=== PATIENT | female | born 1990 | race Caucasian/White ===

== ENCOUNTER 2024-05-31 18:08 | Emergency (ER) | payer SELFPAY ==
--- NOTE | ~2024-05-31 | US_ITS ---
EXAMINATION: US OB <=14 wk fetus w TV INDICATION: 5 weeks, lower abd pain, +preg test, r/o ectopic TECHNIQUE: Sonography of the pelvis was performed by transabdominal and transvaginal techniques. COMPARISON: None. RESULT: Uterus: 10.9 x 5.0 x 6.4 cm. Anteverted. Endometrial complex measures 11 mm. Homogenous myometrium. Intrauterine gestational sac: Not seen. Right ovary: 3.4 x 2.0 x 2.5 cm. Vascular flow is present. 1.7 cm simple cyst. Left ovary: 2.1 x 1.6 x 2.0 cm. Vascular flow is present. No adnexal mass. Pelvis free fluid: None. IMPRESSION: of unknown location. No sonographic evidence of ectopic . Recommend close clinical and laboratory follow-up and follow-up sonography as clinically indicated. Reviewed, dictated and finalized at location K. IMPRESSION: of unknown location. No sonographic evidence of ectopic . Re commend close clinical and laboratory follow-up and follow-up sonography as cli nically indicated.
[2024-05-31 18:14] VITALS: BP 120/81; PULSE 65; RESP 20; TEMP 36.3; O2SAT 100
--- NOTE | 2024-05-31 18:17 | ED.ABDPAIN ---
HPI - Abdominal Pain General Chief Complaint: Abdominal Pain <SIMONE Flynn Last Filed: 05/31/24 18:24> Stated Complaint: ABDOMINAL PAIN TODAY <SIMONE Flynn Last Filed: 05/31/24 18:24> Time Seen by Provider: 05/31/24 18:17 <SIMONE Flynn Last Filed: 05/31/24 18:24> Focused HPI: Patient is a 33 y/o female who presents to the ED with c/o lower abd pain. Patient reports she developed pain across her lower abdomen 4-5 hours ago. Pain has been constant since onset, worse with coughing or movement. Reports N/V, denies fevers, diarrhea, constipation, dysuria, hematuria. Patient reports she believes she is . Her LNMP was 04/23. She had a positive test last week. This would make patient . Does not currently see an OBGYN. GENERAL: Well-appearing, well-nourished, and in no acute distress. HEAD: Normocephalic, atraumatic. CHEST: Clear to auscultation. ?No respiratory distress. HEART: Regular rate and rhythm.? ABD: Diffuse tenderness throughout lower abdomen. No rebound. NEURO: ?Alert and oriented x3. Patient screened in triage and initial orders placed.? ?Additional care and disposition to be based upon?diagnostic testing and treatment. <SIMONE Flynn Last Filed: 05/31/24 18:24> Source: patient <SIMONE Flynn Last Filed: 05/31/24 18:24> Mode of arrival: ambulatory <SIMONE Flynn Last Filed: 05/31/24 18:24> Limitations: no limitations <SIMONE Flynn Last Filed: 05/31/24 18:24> History of Present Illness HPI narrative: The patient 33-year-old female who presents emergency department chief complaint of abdominal pain. Patient reports around 1:00 p.m. today she started having a burning like sensation in her lower abdomen. The patient reports she might be but is unsure patient reports she has had 3 other pregnancies that she has carried to term <Izaiah Maxwell MD - Last Filed: 05/31/24 22:23> Review of Systems Review of Systems: A 10 system review of systems was completed on the patient and is negative except for what is stated in the HPI. Nursing and ancillary documentation was reviewed. <Izaiah Maxwell MD - Last Filed: 05/31/24 22:23> Exam Narrative: GENERAL: Well-appearing, well-nourished, and in no acute distress. HEAD: Normocephalic, atraumatic. EYES: PERRLA and EOMI. ENT: Nares clear, no rhinorrhea or epistaxis. Mucous membranes moist. NECK: Supple. CHEST: Clear to auscultation. No respiratory distress. HEART: Regular rate and rhythm. No murmur heard. Normal peripheral pulses. ABDOMEN: Soft, nontender, nondistended, normal active bowel sounds. EXTREMITIES: Normal range of motion. No edema. SKIN: Warm, dry, no rash. NEURO: No focal deficits. Alert and oriented x3. PSYCH: Normal mood and affect. <Izaiah Maxwell MD - Last Filed: 05/31/24 22:23> Course Vital Signs Vital signs: Vital Signs Temperature 36.3 C L 05/31/24 18:14 Pulse Rate 65 05/31/24 18:14 Respiratory Rate 05/31/24 18:14 Blood Pressure 120/81 05/31/24 18:14 Pulse Oximetry 100 05/31/24 18:14 Oxygen Delivery Room Air 05/31/24 18:14 Temperature 36.3 C L 05/31/24 18:14 Pulse Rate 65 05/31/24 18:14 Respiratory Rate 05/31/24 18:14 Blood Pressure 120/81 05/31/24 18:14 Pulse Oximetry 100 05/31/24 18:14 Oxygen Delivery Room Air 05/31/24 18:14 <Yanique Mari PA-C - Last Filed: 05/31/24 18:24> Vital Signs Temperature 36.3 C L 05/31/24 18:14 Pulse Rate 65 05/31/24 18:14 Respiratory Rate 05/31/24 18:14 Blood Pressure 120/81 05/31/24 18:14 Pulse Oximetry 100 05/31/24 18:14 Oxygen Delivery Room Air 05/31/24 18:14 Temperature 36.3 C L 05/31/24 18:14 Pulse Rate 65 05/31/24 18:14 Respiratory Rate 20 05/31/24 18:14 Blood Pressure 120/81
[2024-05-31 18:35] LABS: Basophils Absolute Auto 0.1 K/mm3 (0.0-0.1); Basophils Percent Auto 0.9 % (0.2-1.2); Eosinophils Absolute Auto 0.4 K/mm3 (0-0.3); Eosinophils Percent Auto 3.3 % (0-4.4); Hemoglobin 14.2 g/dL (12.0-15.0); Immature Granulocyte Absolute 0.02 K/mm3 (0.00-0.031); Immature Granulocyte Percent A 0.2 % (0-0.5); Lymphocytes Percent Auto 30.8 % (18.3-44.2); Mean Corpuscular HGB Conc 34.6 g/dl (32-36); Mean Corpuscular Hemoglobin 32.1 pg (26-34); Mean Corpuscular Volume 92.6 fl (80-100); Mean Platelet Volume 10.3 fl (7.4-10.4); Monocytes Absolute Auto 0.8 K/mm3 (0.1-0.6); Monocytes Percent Auto 7.5 % (2.6-8.5); Neutrophils Absolute Auto 6.3 K/mm3 (1.3-6.7); Neutrophils Percent Auto 57.3 % (45.5-73.1); Platelet Count Result 251 k/mm3 (150-375); Red Blood Count 4.43 M/mm3 (4.2-5.4); Red Cell Distribution Width 12.7 % (11.5-14.5)
[2024-05-31 18:47] LABS: Alanine Aminotransferase 28 U/L (6-35); Albumin Level 4.2 g/dL (3.5-5.1); Alkaline Phosphatase 54 U/L (38-126); Anion Gap 10 mmol/L (4-12); Aspartate Amino Transferase 25 U/L (14-36); Bilirubin,Total 0.3 mg/dL (0.2-1.3); Blood Urea Nitrogen 10 mg/dL (7-17); Carbon Dioxide 23 mmol/L (22-30); Chloride 107 mmol/L (98-107); Estimated CRCL calculation 102 ml/min; Estimated Glomerular Filt Rate > 60; Glucose 90 mg/dL (65-110); Lipase 66 U/L (23-300); Potassium 3.6 mmol/L (3.4-5.0); Sodium 140 mmol/L (137-145)
[2024-05-31 19:04] LABS: Beta HCG Quantitative 275.13 mIU/ML
[2024-05-31 19:07] LABS: Add Urine Microscopic? YES; Appearance Urine Clear (Clear); Bacteria Urine 1+ /hpf; Bilirubin Urine Negative (Negative); Blood Urine 3+ (Negative); Color Urine Dark Yellow (Yellow); Glucose Urine UA Negative (Negative); Ketones Urine Trace mg/dL (Negative); Leukocyte Esterase Ur Negative LEU/UL (Negative); Nitrate Urine Negative (Negative); Non Pathogenic Casts 0-2; Protein Urine 2+ mg/dL (Negative); RBC Urine 21-50 /hpf (0-2); Specific Grav Ur 1.028 (1.001-1.035); Squamous Epithelial Cell Urine Occasional /hpf (Few); WBC Urine 0-5 /hpf (0-3); pH Urine 5.5 (5.0-9.0)
[2024-05-31 22:40] VITALS: BP 121/76; PULSE 88; RESP 15; TEMP 36.8; O2SAT 100
== END 2024-05-31 22:41 | disposition home or self-care (01) ==
PROVIDERS: Physician Assistant; Emergency Provider Emergency Medicine
DX: O26.899 Other specified pregnancy related conditions, unspecified trimester (principal); Z3A.00 Weeks of gestation of pregnancy not specified; R10.30 Lower abdominal pain, unspecified
CPT/HCPCS: 36415; 76801; 76817; 80053; 81001; 83690; 84702; 85025; 85461; 86850; 86900; 86901; 99284

== ENCOUNTER 2024-06-03 19:55 | Emergency (ER) | payer BC, SELFPAY ==
[2024-06-03 19:57] VITALS: BP 144/88; PULSE 67; RESP 13; TEMP 36.4; O2SAT 100
--- NOTE | 2024-06-03 20:26 | ED.FEMALEGU ---
HPI - Female Genitourinary General Chief complaint: Vaginal Bleeding Stated complaint: vaginal bleeding Time Seen by Provider: 06/03/24 20:19 History of Present Illness HPI Narrative: 33-year-old female who is presents to the emergency department with concerns for miscarriage. Patient's LMP was 04/23/2024. Please she is about 5 weeks . States 2 days ago she developed light spotting, bleeding increase yesterday and then more so today. States about an hour prior to arrival she passed a large clot and tissue which prompted her to come to the ED. states she has not had to wear a pad or tampon due to the because it only occurs when she is going to the bathroom. She states she had some abdominal cramping yesterday but that has since resolved. She denies prior history of miscarriages. Denies fever, vomiting, vaginal discharge, concern for STDs, dysuria or hematuria. She denies history of bleeding dyscrasias. No past medical history. Of note, patient was seen in our emergency department 3 days ago for abdominal pain and . Her hCG 3 days ago was 275.13. she had a pelvic ultrasound performed which showed of unknown location, no sonographic evidence of ectopic with recommendations for close clinical and laboratory follow-up and sonography as clinically indicated. Related Data Allergies Allergy/AdvReac Type Severity Reaction Status Date / Time No Known Allergies Allergy Verified 06/03/24 20:00 Review of Systems Review of Systems: All systems reviewed & are unremarkable except as noted in HPI and below Exam Narrative: GENERAL: Well-appearing, well-nourished, and in no acute distress. HEAD: Normocephalic, atraumatic. EYES: PERRLA and EOMI. ENT: Nares clear, no rhinorrhea or epistaxis. Mucous membranes moist. NECK: Supple. CHEST: Clear to auscultation. No respiratory distress. HEART: Regular rate and rhythm. No murmur heard. Normal peripheral pulses. ABDOMEN: Soft, nontender, nondistended, normal active bowel sounds. no rebound, guarding or rigidity. No CVA tenderness. : Chaperoned by Tracy Jimenez: Normal external genitalia with a mild amount of blood in the vaginal vault. Cervical os is slightly open. No clots or tissue visualized. No cervical motion tenderness, adnexal masses or tenderness. EXTREMITIES: Normal range of motion. No edema. SKIN: Warm, dry, no rash. NEURO: No focal deficits. Alert and oriented x3 Course Vital Signs Vital signs: Vital Signs Temperature 97.5 F L 06/03/24 19:57 Pulse Rate 67 06/03/24 19:57 Respiratory Rate 13 06/03/24 19:57 Blood Pressure 144/88 H 06/03/24 19:57 Pulse Oximetry 100 06/03/24 19:57 Oxygen Delivery Room Air 06/03/24 19:57 Temperature 97.5 F L 06/03/24 19:57 Pulse Rate 67 06/03/24 19:57 Respiratory Rate 13 06/03/24 19:57 Blood Pressure 144/88 H 06/03/24 19:57 Pulse Oximetry 100 06/03/24 19:57 Oxygen Delivery Room Air 06/03/24 19:57 MDM - Female Genitourinary MDM Narrative Medical decision making narrative: 33-year-old female who is approximately 5 weeks , LMP 04/15/2024 presents emergency department for vaginal bleeding in and concerns for miscarriage. Triage vital significant for blood pressure 144/88. Patient is afebrile nontoxic appearing. Exam is significant for the above. Abdomen is soft nontender. Mild amount of blood in the vaginal vault with cervical os slightly open concerning for incomplete . CBC with mild leukocytosis of 11.1 which is unchanged from 3 days ago. Hgb stable. Chemistries are unremarkable. Beta hCG today is 145.47, three days ago was 275.13. Rh factor is positive, RhoGAM not indicated. UA with 21-50 wbc's and large amount of blood as well as 2+ bacteria. Workup and exam discussed with the patient. Her presentation is consistent with an incomplete with down trending beta hCG. Given she has no abdominal pain or tenderness, wi
[2024-06-03 20:46] LABS: Basophils Absolute Auto 0.1 K/mm3 (0.0-0.1); Basophils Percent Auto 0.6 % (0.2-1.2); Eosinophils Absolute Auto 0.4 K/mm3 (0-0.3); Eosinophils Percent Auto 3.5 % (0-4.4); Hematocrit 39.3 % (37.0-47.0); Hemoglobin 13.5 g/dL (12.0-15.0); Immature Granulocyte Absolute 0.03 K/mm3 (0.00-0.031); Immature Granulocyte Percent A 0.3 % (0-0.5); Lymphocytes Absolute Auto 3.51 K/mm3 (0.9-3.2); Lymphocytes Percent Auto 31.7 % (18.3-44.2); Mean Corpuscular HGB Conc 34.4 g/dl (32-36); Mean Corpuscular Hemoglobin 31.7 pg (26-34); Mean Corpuscular Volume 92.3 fl (80-100); Mean Platelet Volume 10.4 fl (7.4-10.4); Monocytes Absolute Auto 0.9 K/mm3 (0.1-0.6); Monocytes Percent Auto 8.4 % (2.6-8.5); Neutrophils Absolute Auto 6.1 K/mm3 (1.3-6.7); Neutrophils Percent Auto 55.5 % (45.5-73.1); Platelet Count Result 238 k/mm3 (150-375); Red Blood Count 4.26 M/mm3 (4.2-5.4); Red Cell Distribution Width 12.8 % (11.5-14.5); White Blood Count 11.1 K/mm3 (4.5-10.0)
[2024-06-03 20:57] LABS: Alanine Aminotransferase 21 U/L (6-35); Albumin Level 4.1 g/dL (3.5-5.1); Alkaline Phosphatase 53 U/L (38-126); Anion Gap 10 mmol/L (4-12); Aspartate Amino Transferase 23 U/L (14-36); Bilirubin,Total 0.2 mg/dL (0.2-1.3); Blood Urea Nitrogen 13 mg/dL (7-17); Calcium 8.6 mg/dL (8.4-10.2); Carbon Dioxide 25 mmol/L (22-30); Chloride 104 mmol/L (98-107); Estimated CRCL calculation 102 ml/min; Estimated Glomerular Filt Rate > 60; Glucose 95 mg/dL (65-110); INR 0.9; Partial Thromboplastin Time 25.8 Seconds (22.3-36.8); Potassium 3.7 mmol/L (3.4-5.0); Prothrombin Time 12.6 Seconds (11.1-14.7); Sodium 139 mmol/L (137-145)
[2024-06-03 21:14] LABS: Beta HCG Quantitative 145.47 mIU/ML
[2024-06-03 21:45] LABS: Add Urine Microscopic? YES; Appearance Urine Cloudy (Clear); Bacteria Urine 2+ /hpf; Bilirubin Urine Negative (Negative); Blood Urine 3+ (Negative); Color Urine Yellow (Yellow); Glucose Urine UA Negative (Negative); Ketones Urine Trace mg/dL (Negative); Leukocyte Esterase Ur Trace LEU/UL (Negative); Nitrate Urine Negative (Negative); Non Pathogenic Casts 0-2; Protein Urine 2+ mg/dL (Negative); RBC Urine >100 /hpf (0-2); Specific Grav Ur 1.026 (1.001-1.035); Squamous Epithelial Cell Urine Few /hpf (Few); WBC Urine 21-50 /hpf (0-3)
[2024-06-03 22:20] VITALS: BP 140/80; PULSE 70; RESP 15; O2SAT 99
== END 2024-06-03 22:20 | disposition home or self-care (01) ==
PROVIDERS: Emergency Provider Physician Assistant
DX: O03.4 Incomplete spontaneous abortion without complication (principal)
CPT/HCPCS: 36415; 80053; 81001; 84702; 85025; 85461; 85610; 85730; 86850; 86900; 86901; 87086; 99284

== ENCOUNTER 2024-06-07 15:08 | Outpatient (CLI) | payer BC, SELFPAY ==
[2024-06-07 16:36] LABS: Beta HCG Quantitative 119.12 mIU/ML
== END 2024-06-07 15:09 | disposition home or self-care (01) ==
LOC: ANHLAB 15:10
PROVIDERS: PCP Emergency Medicine; Visit Provider Physician Assistant
DX: O03.4 Incomplete spontaneous abortion without complication (principal)
CPT/HCPCS: 36415; 84702

== ENCOUNTER 2025-01-10 17:57 | Emergency (ER) | payer SELFPAY ==
--- NOTE | ~2025-01-10 | US_ITS ---
EXAMINATION: US OB <= 14 weeks fetus DATE: 01/10/2025 20:07 CDT INDICATION: Abdominal cramping with a positive test COMPARISON: 07/28/2024 TECHNIQUE: Real-time transabdominal and transvaginal obstetric ultrasound. FINDINGS: Last menstrual period is given as 10/22/2024 5 para 3 Estimated date of delivery by last menstrual period is 07/29/2025. The uterus measures 17 x 6.3 x 11 cm. A gestational sac is identified within the uterus. A pole is identified, with a crown-rump length that measures 5.3 cm, corresponding to an approx imate gestational age of 12 weeks and 0 days. cardiac activity is identified at a rate of 138 bpm. The right ovary measures 3.3 x 1.5 x 2.2 cm. The left ovary measures 3.1 x 1.9 x 2.4 cm. IMPRESSION: Single intrauterine gestation with an approximate gestational age of 12 weeks and 0 days, with cardiac activity identified. Reviewed, dictated and finalized at location A. IMPRESSION: Single intrauterine gestation with an approximate gestational age of 12 weeks a nd 0 days, with cardiac activity identified.
[2025-01-10 18:29] VITALS: BP 135/85; PULSE 86; RESP 17; TEMP 36.5; O2SAT 100
--- NOTE | 2025-01-10 18:43 | ED.ABDPAIN ---
HPI - Abdominal Pain General Chief Complaint: Abdominal Pain Stated Complaint: abd pain 11 weeks Time Seen by Provider: 01/10/25 18:30 Focused HPI: Patient is 34-year-old female who presents to the ER with abdominal pain. She reports she has approximately a 11 weeks . Patient reports the abdominal pain started abruptly around 11:00 a.m./12:00 p.m. She reports this is her this , she has had 3 live births and 1 miscarriage. Patient is concerned because this is how her previous miscarriage presented. She endorses nausea along with generalized abdominal pain. Patient denies any recent fevers, urinary symptoms, vaginal bleeding, back pain. GENERAL: Well-appearing, well-nourished, and in no acute distress. HEAD: Normocephalic, atraumatic. CHEST: Clear to auscultation. ?No respiratory distress. HEART: Regular rate and rhythm.? NEURO: ?Alert and oriented x3. Patient screened in triage and initial orders placed.? ?Additional care and disposition to be based upon?diagnostic testing and treatment. Related Data Allergies Allergy/AdvReac Type Severity Reaction Status Date / Time No Known Allergies Allergy Verified 06/03/24 20:00 Course Vital Signs Vital signs: Vital Signs Temperature 36.5 C 01/10/25 18:29 Pulse Rate 86 01/10/25 18:29 Respiratory Rate 17 01/10/25 18:29 Blood Pressure 135/85 01/10/25 18:29 Pulse Oximetry 100 01/10/25 18:29 Temperature 36.5 C 01/10/25 18:29 Pulse Rate 86 01/10/25 18:29 Respiratory Rate 17 01/10/25 18:29 Blood Pressure 135/85 01/10/25 18:29 Pulse Oximetry 100 01/10/25 18:29 MDM - Abdominal Pain Imaging Data Radiologist's impression: ITS Impressions Ultrasound 01/10/25 20:07 IMPRESSION: Single intrauterine gestation with an approximate gestational age of 12 weeks and 0 days, with cardiac activity identified. Discharge Plan Discharge Clinical Impression: Abdominal pain affecting , Gastroenteritis Patient Disposition: Elopement After Seen by Prov Instructions: Antibiotic Form Patient Language: Solomon Islander Follow-up/Referrals: Baltazar Pope MD [Primary Care Provider] -
--- OUTSIDE RECORDS SUMMARY | 2025-01-10 19:08 | XMS_ITS | Referral Summary ---
Author Organization [facility] Virtual Care Address [address] [place] [phone] Phone Care Team Providers Care Storekeeper Helper Name Role Phone No, Physician Primary Care Provider [phone] Encounters Date Type Department Care Team Description 12/05/2024 5:59 PM CLINICAL TRANSFORMATION SPECIALIST - 12/05/2024 9:24 PM CLINICAL TRANSFORMATION SPECIALIST Emergency [facility] Emergency Department [address] [place] [id number] Jose D Espinoza MD Kanumuri, Raghu, MD Abdominal pain during in first trimester (Primary Dx) Discharge Disposition: Discharge to home or self care from Last 3 Months Allergies No known active allergies Social History Tobacco Use Types Packs/Day Years Used Date Smoking Tobacco: Never Assessed Personal Safety Answer Date Recorded Have you ever been in or are you currently in a harmful physical or emotional relationship or is someone making you feel afraid or unsafe? Denies 12/05/2024 Comments Yes Sex and Gender Information Value Date Recorded Sex Assigned at Not on file Legal Sex Female 4:46 PM CDT Gender Identity Not on file Sexual Orientation Not on file Last Filed Vital Signs Vital Sign Reading Time Taken Comments Blood Pressure 108/66 12/05/2024 9:22 PM CLINICAL TRANSFORMATION SPECIALIST Pulse 66 12/05/2024 9:22 PM CLINICAL TRANSFORMATION SPECIALIST Temperature 36.3 C (97.3 F) 12/05/2024 4:06 PM CLINICAL TRANSFORMATION SPECIALIST Respiratory Rate 16 12/05/2024 9:22 PM CLINICAL TRANSFORMATION SPECIALIST Oxygen Saturation 96% 12/05/2024 9:22 PM CLINICAL TRANSFORMATION SPECIALIST Inhaled Oxygen Concentration - - Weight 70.3 kg (155 lb) 12/05/2024 4:07 PM CLINICAL TRANSFORMATION SPECIALIST Height 154.9 cm (5' 1 ) 12/05/2024 4:07 PM CLINICAL TRANSFORMATION SPECIALIST Body Mass Index 29.29 12/05/2024 4:07 PM CLINICAL TRANSFORMATION SPECIALIST Plan of Treatment Not on file Procedures Procedure Name Priority Date/Time Associated Diagnosis Comments URINALYSIS, MICROSCOPIC ONLY STAT 12/05/2024 7:35 PM CLINICAL TRANSFORMATION SPECIALIST ANTIBODY SCREEN Timed 12/05/2024 7:35 PM CLINICAL TRANSFORMATION SPECIALIST ABO/RH Timed 12/05/2024 7:35 PM CLINICAL TRANSFORMATION SPECIALIST HCG, BLOOD, QUANTITATIVE STAT 12/05/2024 7:35 PM CLINICAL TRANSFORMATION SPECIALIST TYPE AND SCREEN Timed 12/05/2024 7:35 PM CLINICAL TRANSFORMATION SPECIALIST URINALYSIS AND REFLEX TO MICROSCOPIC AND CULTURE STAT 12/05/2024 7:35 PM CLINICAL TRANSFORMATION SPECIALIST B ABO / RH CONFIRMATION TESTING STAT 12/05/2024 4:44 PM CLINICAL TRANSFORMATION SPECIALIST EGFR STAT 12/05/2024 4:44 PM CLINICAL TRANSFORMATION SPECIALIST DIFFERENTIAL AUTO STAT 12/05/2024 4:4 4 PM CLINICAL TRANSFORMATION SPECIALIST LIPASE STAT 12/05/2024 4:44 PM CLINICAL TRANSFORMATION SPECIALIST COMPREHENSIVE METABOLIC PANEL STAT 12/05/2024 4:44 PM CLINICAL TRANSFORMATION SPECIALIST CBC WITH AUTO DIFFERENTIAL STAT 12/05/2024 4:44 PM CLINICAL TRANSFORMATION SPECIALIST from Last 3 Months Results * (ABNORMAL) Urinalysis reflex to microscopic and culture Urine (12/05/2024 7:35 PM CLINICAL TRANSFORMATION SPECIALIST) Color, ur Yellow Yellow Clarity, ur Turbid(A) Clear [facility] ([place]) Specific gravity, ur 1.020 1.003 - 1.030 [facility] ([place]) pH, urine 6.0 [facility] ([place]) Comment: Interpretive Data U rine pH is affected by diet, medications, systemic acid-base disturbances, and renal tubular function. pH may affect urinary stone formation. For example, urine pH below 6.0 may help reduce the tendency for calcium phosphate stones and pH greater than 6.0 may reduce the tendency for uric acid stone formation. Source: [facility] [employer] Current Interpretive Data was last revised on 2017 Protein, ur ql 1+(A) Negative [facility] ([place]) Glucose, ur ql Negative Negative [facility] ([place]) Ketones, ur Negative Negative [facility] ([place]) Bilirubin, ur Negative Negative [facility] ([place]) Blood, ur 3+(A) Negative [facility] ([place]) Urobilinogen, ur <2.0 <2.0 mg/dL [facility] ([place]) Nitrite, ur Negative Negative [facility] ([place]) Leukocyte esterase, ur Negative Negative [facility] ([place]) UA reflex comment Reflex to microscopic UA will be performed. [facility] ([place]) Urine 12/05/2024 7:35 PM CLINICAL TRANSFORMATION SPECIALIST 12/05/2024 7:47 PM CLINICAL TRANSFORMATION SPECIALIST us Jose D Espinoza MD LAB MICROBIOLOGY - GENERAL ORDERABLES Final Result [facility] ([place]) 1 [facility] [place] [address] * ABO/Rh (12/05/2024 7:35 PM CLINICAL TRANSFORMATION SPECIALIST) ABO/Rh A Positive Blood 12/05/2024 7:35 PM CLINICAL TRANSFORMATION SPECIALIST 12/05/2024 7:47 PM CLINICAL TRANSFORMATION SPECIALIST Narrative [facility] ([place]) - 12/05/2024 8:29 PM CLINICAL TRANSFORMATION SPECIALIST Has the patient had Daratumumab or Isatuximab in the past 6 months?->Unknown us Joe Martinez MD LAB BLOOD BANK TEST ORDERABLES Final Result [facility] ([place]) 1 [facility] [employer] [place] [employer] [place] [address] * (ABNORMAL) Urinalysis, microscopic only (12/05/2024 7:35 PM CLINICAL TRANSFORMATION SPECIALIST) WBC, ur 0-5 0 - 5 /HPF RBC, ur 0-2 0 - 2 /HPF [facility] ([place]) Epithelial cells, squamous, ur 11-20(A) 0 - 5 /HPF [facility] ([place]) Mucous, ur Present(A) [facility] ([place]) Culture Reflex Comment Reflex conditions for urine culture (WBC >10) not met. [facility] ([place]) Urine 12/05/2024 7:35 PM CLINICAL TRANSFORMATION SPECIALIST 12/05/2024 7:47 PM CLINICAL TRANSFORMATION SPECIALIST Jose D Espinoza MD LAB URINE ORDERABLES Final Result Performing Organization Address City/[facility]/ZIP Co de Phone Number [facility] ([place]) [address] [place] [address] [employer] [place] [address] * Antibody screen (12/05/2024 7:35 PM CLINICAL TRANSFORMATION SPECIALIST) Hemalatha, indirect, Gel Interpretation Negative ABSC Blood 12/05/2024 7:35 PM CLINICAL TRANSFORMATION SPECIALIST 12/05/2024 7:47 PM CLINICAL TRANSFORMATION SPECIALIST Narrative [facility] ([place]) - 12/05/2024 8:44 PM CLINICAL TRANSFORMATION SPECIALIST Has the patient had Daratumumab or Isatuximab in the past 6 months?->Unknown Joe Martinez MD LAB BLOOD BANK TEST ORDERABLES Final Result Performing Organization Address City/[facility]/ZIP Co de Phone Number [facility] ([place]) 1 [facility] [place] [address] * (ABNORMAL) hCG, blood, quantitative (12/05/2024 7:35 PM CLINICAL TRANSFORMATION SPECIALIST) hCG, quant 88,247.0( H) 0.0 - 5.0 IUnits/L Comment: Interpretive Data Male: < 5 IU/L Non- premenopausal Female: <5 IU/L The [place] hCG Beta Quant assay procedure was used. Results from different manufacturers or methods may not be comparable. Serial testing should be performed using the same method. Interpretive Data was last revised on 2023 Blood 12/05/2024 7:35 PM CLINICAL TRANSFORMATION SPECIALIST 12/05/2024 7:47 PM CLINICAL TRANSFORMATION SPECIALIST us Joe Martinez MD LAB BLOOD ORDERABLES Final Res ult [facility] ([place]) 1 [facility] [place] [address] * eGFR (12/05/2024 4:44 PM CLINICAL TRANSFORMATION SPECIALIST) eGFR >90 >=60 mL/min/1. 73 m2 Comment: Interpretive Data Reference Interval Normal >/= 90 mL/min/1.73m2 Mildly decreased* 60 - 89 mL/min/1.73m2 Mildly to moderately decreased 45 - 59 mL/min/1.73m2 Moderately to severely decreased 30 - 44 mL/min/1.73m2 Severely decreased 15 - 29 mL/min/1.73m2 Kidney Failure < 15 mL/min/1.73m2 *Relative to young adult level Estimated glomerular filtration rate is determined by the 2020 CKD-EPI equation recommended by the National Kidney Foundation (A Unifying Approach to GFR Estimation: Recommendations of the NKF-ASK Task Force on Reassessing the Inclusion of Race in Diagnosing Kidney Disease, JASN 2020). The CKD-EPI equation should not be used for patients with unstable renal function and has not been validated in children and those over 70. Current interpretive data was last reviewed 2021. Blood 12/05/2024 4:44 PM CLINICAL TRANSFORMATION SPECIALIST 12/05/2024 4:49 PM CLINICAL TRANSFORMATION SPECIALIST us Jose D Espinoza MD LAB BLOOD ORDERABLES Final Result Performing Organization Address City/[facility]/ZIP Co de Phone Number [facility] ([place]) [address] [place] [address] [place] [employer] [place] [address] * (ABNORMAL) Differential, auto (12/05/2024 4:44 PM CLINICAL TRANSFORMATION SPECIALIST) Neutrophil abs 7.4(H) 1.5 - 6.5 K/cumm Imm gran abs 0.0 0.0 - 0.1 K/cumm [facility] ([place]) Lymphocyte abs 3.4(H) 0.8 - 3.3 K/cumm [facility] ([place]) Monocyte abs 1.0(H) 0.2 - 0.8 K/cumm [facility] ([place]) Eosinophil abs 0.3 0.0 - 0.5 K/cumm [facility] ([place]) Basophil abs 0.1 0.0 - 0.1 K/cumm [facility] ([place]) Neutrophil pct 60.6 % [facility] ([place]) Comment: Interpretive Data Percent cell count reference ranges are not reported, since discordance with absolute values may lead to misinterpretation of CBC data. Current Interpretive Data was last revised on 2018. Imm gran pct 0.2 % [facility] ([place]) Comment: Interpretive Data Percent cell count reference ranges are not reported, since discordance with absolute values may lead to misinterpretation of CBC data. Current Interpretive Data was last revised on 2018. Lymphocyte pct 28.0 % [facility] ([place]) Comment: Interpretive Data Percent cell count reference ranges are not reported, since discordance with absolute values may lead to misinterpretation of CBC data. Current Interpretive Data was last revised on 2018. Monocyte pct 7.9 % [facility] ([place]) Comment: Interpretive Data Percent cell count reference ranges are not reported, since discordance with absolute values may lead to misinterpretation of CBC data. Current Interpretive Data was last revised on 2018. Eosinophil pct 2.7 % [facility] ([place]) Comment: Interpretive Data Percent cell count reference ranges are not reported, since discordance with absolute values may lead to misinterpretation of CBC data. Current Interpretive Data was last revised on 2018. Basophil pct 0.6 % [facility] ([place]) Comment: Interpretive Data Percent cell count reference ranges are not reported, since discordance with absolute values may lead to misinterpretation of CBC data. Current Interpretive Data was last revised on 2018. Blood 12/05/2024 4:44 PM CLINICAL TRANSFORMATION SPECIALIST 12/05/2024 4:49 PM CLINICAL TRANSFORMATION SPECIALIST Jose D Espinoza MD LAB BLOOD ORDERABLES Final Result [facility] ([place]) 1 [facility] [place] [address] * ABO / Rh Confirmation Testing (12/05/2024 4:44 PM CLINICAL TRANSFORMATION SPECIALIST) ABO/Rh Confirmation A Positive [facility] Blood 12/05/2024 4:44 PM CLINICAL TRANSFORMATION SPECIALIST 12/05/2024 8:38 PM CLINICAL TRANSFORMATION SPECIALIST Joe Martinez MD LAB BLOOD ORDERABLES Final Res ult Performing Organization Address City/[facility] Co de Phone Number [facility] ([place]) 1 [facility] [place] [address] [facility] * (ABNORMAL) CBC with auto differential (12/05/2024 4:44 PM CLINICAL TRANSFORMATION SPECIALIST) WBC 12.2(H) 3.8 - 9.9 K/cumm Hgb 13.6 11.9 - 15.5 g/dL [facility] ([place]) Hct 39.2 35.6 - 45.5 % [facility] ([place]) Plt 255 150 - 400 K/cumm [facility] ([place]) MPV 9.9 9.1 - 12.3 fL [facility] ([place]) RBC 4.35 3.90 - 5.20 M/cumm [facility] ([place]) MCV 90.1 81.3 - 96.4 fL [facility] ([place]) MCH 31.3 27.1 - 33.3 pg [facility] ([place]) MCHC 34.7 32.3 - 35.7 g/dL [facility] ([place]) RDW CV 12.4 11.1 - 14.9 % [facility] ([place]) RDW SD 40.6 35.7 - 48.1 fL [facility] ([place]) NRBC abs 0.00 0.00 - 0.01 K/cumm [facility] ([place]) Blood Venous blood specimen / Unknown 12/05/2024 4:44 PM CLINICAL TRANSFORMATION SPECIALIST 12/05/2024 4:49 PM CLINICAL TRANSFORMATION SPECIALIST Jose D Espinoza MD LAB BLOOD ORDERABLES Final Result [facility] ([place]) 1 [facility] [place] [address] * Lipase (12/05/2024 4:44 PM CLINICAL TRANSFORMATION SPECIALIST) Lipase 20 10 - 99 Units/L Blood Venous blood specimen / Unknown 12/05/2024 4:44 PM CLINICAL TRANSFORMATION SPECIALIST 12/05/2024 4:49 PM CLINICAL TRANSFORMATION SPECIALIST Jose D Espinoza MD LAB BLOOD ORDERABLES Final Result Performing Organization Address [facility] de Phone Number [facility] ([place]) [address] [place] [address] * Comprehensive metabolic panel (12/05/2024 4:44 PM CLINICAL TRANSFORMATION SPECIALIST) Pathologist [facility] Sodium 137 135 - 145 mmol/L Potassium, pl 4.1 3.3 - 4.9 mmol/L [facility] ([place]) Chloride 103 97 - 110 mmol/L [facility] ([place]) CO2 24 22 - 32 mmol/L [facility] ([place]) Anion gap 10 2 - 15 mmol/L [facility] ([place]) BUN 10 6 - 25 mg/dL [facility] ([place]) Creatinine 0.63 0.60 - 1.10 mg/dL [facility] ([place]) Glucose 92 70 - 199 mg/dL [facility] ([place]) Comment: Interpretive Data Fasting glucose >/= 126 mg/dl is diagnostic for diabetes. Fasting is defined as no caloric intake for at least 8 hours. Fasting glucose between 100 mg/dl to 125 mg/dl is diagnostic of prediabetes. In a patient with classic symptoms of hyperglycemia or hyperglycemic crisis, a random glucose >/= 200 mg/dl is diagnostic for diabetes. In the absence of unequivocal hyperglycemia, results should be confirmed by repeat testing. The classification and Diagnosis of Diabetes Diabetes Care 2021; 46: S19-S40. Current interpretive data was last revised 2022. Calcium 9.0 8.5 - 10.3 mg/dL [facility] ([place]) Bilirubin, total <0.2 0.1 - 1.2 mg/dL [facility] ([place]) Protein, pl 6.5 6.5 - 8.5 g/dL [facility] ([place]) Albumin 3.8 3.5 - 5.0 g/dL [facility] ([place]) Alk phos 56 40 - 130 Units/L [facility] ([place]) ALT 42 7 - 45 Units/L [facility] ([place]) AST 27 10 - 45 Units/L [facility] ([place]) Blood 12/05/2024 4:44 PM CLINICAL TRANSFORMATION SPECIALIST 12/05/2024 4:49 PM CLINICAL TRANSFORMATION SPECIALIST Jose D Espinoza MD LAB BLOOD ORDERABLES Final Result [facility] ([place]) 1 [facility] [place] [address] from Last 3 Months Insurance IDPA Care Teams Storekeeper Helper Relationship Specialty Start Date End Date No, Physician PCP - General 12/05/24
--- OUTSIDE RECORDS SUMMARY | 2025-01-10 19:08 | XMS_ITS | Clinical Summary ---
Author Organization [facility] Address [address] [place] [address] Phone Care Team Providers Care Gift Consultant Name Role Phone Provider, None Primary Care Provider Unavailabl e Allergies No known active allergies Medications albuterol 108 (90 Base) MCG/ACT Aerosol Solution take 2 Puffs by inhalation every 6 hours as needed for Wheezing. 8 g Active Social History Tobacco Use Types Packs/Day Years Used Date Smoking Tobacco: Every Day Cigarettes Smokeless Tobacco: Never Tobacco Cessation:Ready to Q uit: Not Asked; Counseling Given: Not Answered Comments No Sex and Gender Information Value Date Recorded Sex Assigned at Not on file Legal Sex Female 5:33 PM CDT Gender Identity Not on file Sexual Orientation Not on file Last Filed Vital Signs Vital Sign Reading Time Taken Comments Blood Pressure 117/73 04/13/2024 7:17 PM CDT Pulse 78 04/13/2024 7:17 PM CDT Temperature 36.1 C (96.9 F) 04/13/2024 7:17 PM CDT Respiratory Rate 16 04/13/2024 7:17 PM CDT Oxygen Saturation 96% 04/13/2024 7:17 PM CDT Inhaled Oxygen Concentration - - Weight 68.9 kg (152 lb) 04/13/2024 5:37 PM CDT Height 154.9 cm (5' 1 ) 04/13/2024 5:37 PM CDT Body Mass Index 28.72 04/13/2024 5:37 PM CDT Plan of Treatment Health Maintenance Due Date Last Done Comments Hepatitis C Virus (HCV) Screening 1991 TdaP Immunization 1991 Hepatitis B Immunization (1 of 3 - 19+ 3-dose series) 2010 Pneumococcal Immunization Co mbined (1 of 2 - PCV) 2010 Pap Smear 2012 Cervical Cancer Screening (CCS) 2021 HPV/Cotest 2021 Influenza Immunization (#1) 2024 SARS-COV-2 Immunization (1 - 2023- season) 2024 Respiratory Syncytial Virus (RSV) Immunization (Adult) (1 - 1-dose 75+ series) 2066 Meningococcal Immunization (ACWY) Aged Out No longer eligible based on patient's age to complete this topic Rotavirus Immunization Aged Out No lo nger eligible based on patient's age to complete this topic Insurance MEDICAID [place] Care Teams Gift Consultant Relationship Specialty Start Date End Date Provider, None [place] PCP - General 04/13/24
--- OUTSIDE RECORDS SUMMARY | 2025-01-10 19:08 | XMS_ITS | Clinical Summary ---
Author Organization [facility] Virtual Care Address [address] [place] [id number] Phone Care Team Providers Care Calculating Machine Mechanic Name Role Phone No, Physician Primary Care Provider [phone] Allergies No known active allergies Encounters Date Type Department Care Team Description 12/05/2024 5:59 PM STAFF ELECTRONIC WARFARE OFFICER - 12/05/2024 9:24 PM STAFF ELECTRONIC WARFARE OFFICER Emergency [facility] Emergency Department [address] [place] [id number] Jose D Espinoza MD Kanumuri, Raghu, MD Abdominal pain during in first trimester (Primary Dx) Discharge Disposition: Discharge to home or self care from Last 3 Months Social History Tobacco Use Types Packs/Day Years [...] on file Sexual Orientation Not on file Obstetrics History Para Term AB IAB SAB Ectopic Multiple Livin g Live Births 1 Date Outcome GA Total Labor Labor/2nd/3rd Weight Sex Type Anes PTL Lily A1 A5 Name Clin Current Last Filed Vital Signs Vital Sign Reading Time Taken Comments Blood Pressure 108/66 12/05/2024 9:22 PM STAFF ELECTRONIC WARFARE OFFICER Pulse 66 12/05/2024 9:22 PM STAFF ELECTRONIC WARFARE OFFICER Temperature 36.3 C (97.3 F) 12/05/2024 4:06 PM STAFF ELECTRONIC WARFARE OFFICER Respiratory Rate 16 12/05/2024 9:22 PM STAFF ELECTRONIC WARFARE OFFICER Oxygen Saturation 96% 12/05/2024 9:22 PM STAFF ELECTRONIC WARFARE OFFICER Inhaled Oxygen Concentration - - Weight 70.3 kg (155 lb) 12/05/2024 4:07 PM STAFF ELECTRONIC WARFARE OFFICER Height 154.9 cm (5' 1 ) 12/05/2024 4:07 PM STAFF ELECTRONIC WARFARE OFFICER Body Mass Index 29.29 12/05/2024 4:07 PM STAFF ELECTRONIC WARFARE OFFICER Plan of Treatment Health Maintenance Due Date Last Done Comments Depression Screening 1991 Hepatitis C Screening 1991 DTaP/Tdap/Td Vaccine (1 - Tdap) 2002 Varicella Vaccines (1 of 2 - 13+ 2-dose series) 2004 Hepatitis B Screening 2009 Regular Well Visit/Exam 18-64 2009 Pneumococcal vaccine <65 (1 of 2 - PCV) 2010 Cervical Cancer Screening 12/19/2022 12/19/2021 Influenza Vaccine (#1) 2024 HPV Vaccines Aged Out No longer eligi ble based on patient's age to complete this topic Procedures Procedure Name Priority Date/Time Associated Diagnosis Comments URINALYSIS, MICROSCOPIC ONLY STAT 12/05/2024 7:35 PM STAFF ELECTRONIC WARFARE OFFICER ANTIBODY SCREEN Timed 12/05/2024 7:35 PM STAFF ELECTRONIC WARFARE OFFICER ABO/RH Timed 12/05/2024 7:35 PM STAFF ELECTRONIC WARFARE OFFICER HCG, BLOOD, QUANTITATIVE STAT 12/05/2024 7:35 PM STAFF ELECTRONIC WARFARE OFFICER TYPE AND SCREEN Timed 12/05/2024 7:35 PM STAFF ELECTRONIC WARFARE OFFICER URINALYSIS AND REFLEX TO MICROSCOPIC AND CULTURE STAT 12/05/2024 7:35 PM STAFF ELECTRONIC WARFARE OFFICER B ABO / RH CONFIRMATION TESTING STAT 12/05/2024 4:44 PM STAFF ELECTRONIC WARFARE OFFICER EGFR STAT 12/05/2024 4:44 PM STAFF ELECTRONIC WARFARE OFFICER DIFFERENTIAL AUTO STAT 12/05/2024 4:4 4 PM STAFF ELECTRONIC WARFARE OFFICER LIPASE STAT 12/05/2024 4:44 PM STAFF ELECTRONIC WARFARE OFFICER COMPREHENSIVE METABOLIC PANEL STAT 12/05/2024 4:44 PM STAFF ELECTRONIC WARFARE OFFICER CBC WITH AUTO DIFFERENTIAL STAT 12/05/2024 4:44 PM STAFF ELECTRONIC WARFARE OFFICER from Last 3 Months Results * (ABNORMAL) Urinalysis reflex to microscopic and culture Urine (12/05/2024 7:35 PM STAFF ELECTRONIC WARFARE OFFICER) Color, ur Yellow Yellow Clarity, ur Turbid(A) [...] tendency for uric acid stone formation. Source: [facility] [place] Current Interpretive Data was last revised on [...] [facility] ([place]) Urine 12/05/2024 7:35 PM STAFF ELECTRONIC WARFARE OFFICER 12/05/2024 7:47 PM STAFF ELECTRONIC WARFARE OFFICER Jose D Espinoza MD LAB MICROBIOLOGY - GENERAL ORDERABLES Final Result [facility] ([place]) 1 [facility] [place] [address] * ABO/Rh (12/05/2024 7:35 PM STAFF ELECTRONIC WARFARE OFFICER) ABO/Rh A Positive Blood 12/05/2024 7:35 PM STAFF ELECTRONIC WARFARE OFFICER 12/05/2024 7:47 PM STAFF ELECTRONIC WARFARE OFFICER Narrative [facility] ([place]) - 12/05/2024 8:29 PM STAFF ELECTRONIC WARFARE OFFICER Has the patient had Daratumumab or Isatuximab in the past 6 months?->Unknown us Joe Martinez MD LAB BLOOD BANK TEST ORDERABLES Final Result [facility] ([place]) 1 [facility] [place] [address] * (ABNORMAL) Urinalysis, microscopic only (12/05/2024 7:35 PM STAFF ELECTRONIC WARFARE OFFICER) WBC, ur 0-5 0 - 5 /HPF RBC, ur 0-2 0 - 2 /HPF [facility] ([place]) Epithelial cells, squamous, ur 11-20(A) 0 - 5 /HPF [facility] ([place]) Mucous, ur Present(A) [facility] ([place]) Culture Reflex Comment Reflex conditions for urine culture (WBC >10) not met. [facility] ([place]) Urine 12/05/2024 7:35 PM STAFF ELECTRONIC WARFARE OFFICER 12/05/2024 7:47 PM STAFF ELECTRONIC WARFARE OFFICER us Jose D Espinoza MD LAB URINE ORDERABLES Final Result Performing Organization Address City/[facility]/ZIP Co de Phone Number [facility] ([place]) 1 [facility] [place] [employer] [place] [address] * Antibody screen (12/05/2024 7:35 PM STAFF ELECTRONIC WARFARE OFFICER) Hemalatha, indirect, Gel Interpretation Negative ABSC Blood 12/05/2024 7:35 PM STAFF ELECTRONIC WARFARE OFFICER 12/05/2024 7:47 PM STAFF ELECTRONIC WARFARE OFFICER Narrative [facility] ([place]) - 12/05/2024 8:44 PM STAFF ELECTRONIC WARFARE OFFICER Has the patient had Daratumumab or Isatuximab in the past 6 months?->Unknown Jeo Martinez MD LAB BLOOD BANK TEST ORDERABLES Final Result [facility] ([place]) 1 [facility] [place] [address] * (ABNORMAL) hCG, blood, quantitative (12/05/2024 7:35 PM STAFF ELECTRONIC WARFARE OFFICER) hCG, quant 88,247.0( H) 0.0 - 5.0 IUnits/L Comment: Interpretive Data Male: < 5 IU/L Non- premenopausal Female: <5 IU/L The [place] hCG Beta Quant assay procedure was used. Results from different manufacturers or methods may not be comparable. Serial testing should be performed using the same method. Interpretive Data was last revised on 2023 Blood 12/05/2024 7:35 PM STAFF ELECTRONIC WARFARE OFFICER 12/05/2024 7:47 PM STAFF ELECTRONIC WARFARE OFFICER Joe Martinez MD LAB BLOOD ORDERABLES Final Res ult [facility] ([place]) 1 [facility] [place] [address] * eGFR (12/05/2024 4:44 PM STAFF ELECTRONIC WARFARE OFFICER) eGFR >90 >=60 mL/min/1. 73 m2 Comment: [...] last reviewed 2021. Blood 12/05/2024 4:44 PM STAFF ELECTRONIC WARFARE OFFICER 12/05/2024 4:49 PM STAFF ELECTRONIC WARFARE OFFICER us Jose D Espinoza MD LAB BLOOD ORDERABLES Final Result [facility] ([place]) 1 [facility] [place] [address] * (ABNORMAL) Differential, auto (12/05/2024 4:44 PM STAFF ELECTRONIC WARFARE OFFICER) Neutrophil abs 7.4(H) 1.5 - 6.5 K/cumm Imm gran abs 0.0 0.0 - 0.1 K/cumm [facility] ([place]) Lymphocyte abs 3.4(H) 0.8 - 3.3 K/cumm [facility] ([place]) Monocyte abs 1.0(H) 0.2 - 0.8 K/cumm [facility] ([place]) Eosinophil abs 0.3 0.0 - 0.5 K/cumm [facility] ([place]) Basophil abs 0.1 0.0 - 0.1 K/cumm [facility] ([place]) Neutrophil pct 60.6 % [facility] ([place]) Comment: Interpretive Data Percent cell count reference [...] revised on 2018. Blood 12/05/2024 4:44 PM STAFF ELECTRONIC WARFARE OFFICER 12/05/2024 4:49 PM STAFF ELECTRONIC WARFARE OFFICER Jose D Espinoza MD LAB BLOOD ORDERABLES Final Result Performing Organization Address [facility]/ZIP Co de Phone Number [facility] ([place]) 1 [facility] [place] [address] * ABO / Rh Confirmation Testing (12/05/2024 4:44 PM STAFF ELECTRONIC WARFARE OFFICER) ABO/Rh Confirmation A Positive [facility] Blood 12/05/2024 4:44 PM STAFF ELECTRONIC WARFARE OFFICER 12/05/2024 8:38 PM STAFF ELECTRONIC WARFARE OFFICER Joe Martinez MD LAB BLOOD ORDERABLES Final Res ult Performing Organization Address [facility]/ZIP Co de Phone Number [facility] ([place]) 1 [facility] [place] [address] [facility]H * (ABNORMAL) CBC with auto differential (12/05/2024 4:44 PM STAFF ELECTRONIC WARFARE OFFICER) WBC 12.2(H) 3.8 - 9.9 K/cumm Hgb 13.6 11.9 - 15.5 g/dL [facility] ([place]) Hct 39.2 35.6 - 45.5 % [facility] ([place]) Plt 255 150 - 400 K/cumm [facility] ([place]) MPV 9.9 9.1 - 12.3 fL [facility] ([place]) RBC 4.35 3.90 - 5.20 M/cumm [facility] ([place]) MCV 90.1 81.3 - 96.4 fL [facility] ([place]) MCH 31.3 27.1 - 33.3 pg [facility] ([place]) MCHC 34.7 32.3 - 35.7 g/dL [facility] ([place]) RDW CV 12.4 11.1 - 14.9 % [facility]) RDW SD 40.6 35.7 - 48.[address] [facility] ([place]) NRBC abs 0.00 0.00 - 0.01 K/cumm [facility] ([place]) Blood Venous blood specimen / Unknown 12/05/2024 4:44 PM STAFF ELECTRONIC WARFARE OFFICER 12/05/2024 4:49 PM STAFF ELECTRONIC WARFARE OFFICER Jose D Espinoza MD LAB BLOOD ORDERABLES Final Result Performing Organization Address [facility] de Phone Number [facility] ([place]) 1 [facility] [employer] [address] * Lipase (12/05/2024 4:44 PM STAFF ELECTRONIC WARFARE OFFICER) Pathologist [facility] Lipase 20 10 - 99 Units/L Blood Venous blood specimen / Unknown 12/05/2024 4:44 PM STAFF ELECTRONIC WARFARE OFFICER 12/05/2024 4:49 PM STAFF ELECTRONIC WARFARE OFFICER Jose D Espinoza MD LAB BLOOD ORDERABLES Final Result Performing Organization Address City/[facility] de Phone Number [facility] ([place]) 1 [facility] [place] [place] [address] * Comprehensive metabolic panel (12/05/2024 4:44 PM STAFF ELECTRONIC WARFARE OFFICER) Sodium 137 135 - 145 mmol/L Potassium, pl 4.1 3.3 - 4.9 mmol/L [facility] ([place]) Chloride 103 97 - 110 mmol/L [facility] ([place]) CO2 24 22 - 32 mmol/L [facility] ([place]) Anion gap 10 2 - 15 mmol/L [facility] ([place]) BUN 10 6 - 25 mg/dL [facility] ([place]) Creatinine 0.63 0.60 - 1.10 mg/dL [facility] ([place]) Glucose 92 70 - 199 mg/dL [facility] ([place]) Comment: Interpretive Data Fasting glucose >/= [...] classification and Diagnosis of Diabetes Diabetes Care 202; 46: S19-S40. Current interpretive data was last [...] [facility] ([place]) Blood 12/05/2024 4:44 PM STAFF ELECTRONIC WARFARE OFFICER 12/05/2024 4:49 PM STAFF ELECTRONIC WARFARE OFFICER Jose D Espinoza MD LAB BLOOD ORDERABLES Final Result [facility] ([place]) 1 [facility] [place] [address] from Last 3 Months Insurance IDPA Care Teams Calculating Machine Mechanic Relationship Specialty Start Date End Date No, Physician PCP - General 12/05/24
--- NOTE | 2025-01-10 21:49 | PC.NURSE ---
Patient approached triage desk asking to speak with a doctor. Pt informed that she will not see another provider until she is placed in a room. Pt then stated she is leaving because That could be another couple of hours. Pt advised to be seen at nearest hospital for any changes in status.
--- OUTSIDE RECORDS SUMMARY | 2025-01-11 02:07 | XMS_ITS | Clinical Summary ---
Author Organization [facility] Virtual Care Address [address] [place] [phone] Phone Care Team Providers Care Support Technician Name Role Phone No, Physician Primary Care Provider [phone] Allergies No known active allergies Encounters Date Type Department Care Team Description 12/05/2024 5:59 PM HELMINTHOLOGIST - 12/05/2024 9:24 PM HELMINTHOLOGIST Emergency [facility] Emergency Department [address] [place] [id number] Jose D Espinoza MD Kanumuri, Raghu, MD [...] Comments Blood Pressure 108/66 12/05/2024 9:22 PM HELMINTHOLOGIST Pulse 66 12/05/2024 9:22 PM HELMINTHOLOGIST Temperature 36.3 C (97.3 F) 12/05/2024 4:06 PM HELMINTHOLOGIST Respiratory Rate 16 12/05/2024 9:22 PM HELMINTHOLOGIST Oxygen Saturation 96% 12/05/2024 9:22 PM HELMINTHOLOGIST Inhaled Oxygen Concentration - - Weight 70.3 kg (155 lb) 12/05/2024 4:07 PM HELMINTHOLOGIST Height 154.9 cm (5' 1 ) 12/05/2024 4:07 PM HELMINTHOLOGIST Body Mass Index 29.29 12/05/2024 4:07 PM HELMINTHOLOGIST Plan of Treatment Health Maintenance Due Date [...] URINALYSIS, MICROSCOPIC ONLY STAT 12/05/2024 7:35 PM HELMINTHOLOGIST ANTIBODY SCREEN Timed 12/05/2024 7:35 PM HELMINTHOLOGIST ABO/RH Timed 12/05/2024 7:35 PM HELMINTHOLOGIST HCG, BLOOD, QUANTITATIVE STAT 12/05/2024 7:35 PM HELMINTHOLOGIST TYPE AND SCREEN Timed 12/05/2024 7:35 PM HELMINTHOLOGIST URINALYSIS AND REFLEX TO MICROSCOPIC AND CULTURE STAT 12/05/2024 7:35 PM HELMINTHOLOGIST B ABO / RH CONFIRMATION TESTING STAT 12/05/2024 4:44 PM HELMINTHOLOGIST EGFR STAT 12/05/2024 4:44 PM HELMINTHOLOGIST DIFFERENTIAL AUTO STAT 12/05/2024 4:4 4 PM HELMINTHOLOGIST LIPASE STAT 12/05/2024 4:44 PM HELMINTHOLOGIST COMPREHENSIVE METABOLIC PANEL STAT 12/05/2024 4:44 PM HELMINTHOLOGIST CBC WITH AUTO DIFFERENTIAL STAT 12/05/2024 4:44 PM HELMINTHOLOGIST from Last 3 Months Results * (ABNORMAL) Urinalysis reflex to microscopic and culture Urine (12/05/2024 7:35 PM HELMINTHOLOGIST) Color, ur Yellow Yellow Clarity, ur Turbid(A) [...] for uric acid stone formation. Source: [facility] [employer] Current Interpretive Data was last revised on [...] [facility] ([place]) Urine 12/05/2024 7:35 PM HELMINTHOLOGIST 12/05/2024 7:47 PM HELMINTHOLOGIST Jose D Espinoza MD LAB MICROBIOLOGY - GENERAL ORDERABLES Final Result [facility] ([place]) 1 [facility] Department [place] [address] * ABO/Rh (12/05/2024 7:35 PM HELMINTHOLOGIST) ABO/Rh A Positive Blood 12/05/2024 7:35 PM HELMINTHOLOGIST 12/05/2024 7:47 PM HELMINTHOLOGIST Narrative [facility] ([place]) - 12/05/2024 8:29 PM HELMINTHOLOGIST Has the patient had Daratumumab or Isatuximab in the past 6 months?->Unknown us Joe Martinez MD LAB BLOOD BANK TEST ORDERABLES Final Result [facility] ([place]) 1 [facility] [place] [address] * (ABNORMAL) Urinalysis, microscopic only (12/05/2024 7:35 PM HELMINTHOLOGIST) WBC, ur 0-5 0 - 5 /HPF RBC, ur 0-2 0 - 2 /HPF [facility] ([place]) Epithelial cells, squamous, ur 11-20(A) 0 - 5 /HPF [facility] ([place]) Mucous, ur Present(A) [facility] A ([place]) Culture Reflex Comment Reflex conditions for urine culture (WBC >10) not met. [facility] ([place]) Urine 12/05/2024 7:35 PM HELMINTHOLOGIST 12/05/2024 7:47 PM HELMINTHOLOGIST us Jose D Espinoza MD LAB URINE ORDERABLES Final Result Performing Organization Address City/[facility]/ZIP Co de Phone Number [facility] ([place]) 1 [facility] [place] [address] * Antibody screen (12/05/2024 7:35 PM HELMINTHOLOGIST) Hemalatha, indirect, Gel Interpretation Negative ABSC Blood 12/05/2024 7:35 PM HELMINTHOLOGIST 12/05/2024 7:47 PM HELMINTHOLOGIST Narrative [facility] ([place]) - 12/05/2024 8:44 PM HELMINTHOLOGIST Has the patient had Daratumumab or Isatuximab in the past 6 months?->Unknown Joe Martinez MD LAB BLOOD BANK TEST ORDERABLES Final Result [facility] ([place]) 1 [facility] [place] [address] * (ABNORMAL) hCG, blood, quantitative (12/05/2024 7:35 PM HELMINTHOLOGIST) hCG, quant 88,247.0( H) 0.0 - 5.0 IUnits/L Comment: Interpretive Data Male: < 5 IU/L Non- premenopausal Female: <5 IU/L The [place] hCG Beta Quant assay procedure was used. Results from different manufacturers or methods may not be comparable. Serial testing should be performed using the same method. Interpretive Data was last revised on 2023 Blood 12/05/2024 7:35 PM HELMINTHOLOGIST 12/05/2024 7:47 PM HELMINTHOLOGIST Joe Martinez MD LAB BLOOD ORDERABLES Final Res ult [facility] ([place]) 1 [facility] [place] [address] * eGFR (12/05/2024 4:44 PM HELMINTHOLOGIST) eGFR >90 >=60 mL/min/1. 73 m2 Comment: [...] last reviewed 2021. Blood 12/05/2024 4:44 PM HELMINTHOLOGIST 12/05/2024 4:49 PM HELMINTHOLOGIST us Jose D Espinoza MD LAB BLOOD ORDERABLES Final Result [facility] ([place]) 1 [facility] Department [place] [address] * (ABNORMAL) Differential, auto (12/05/2024 4:44 PM HELMINTHOLOGIST) Neutrophil abs 7.4(H) 1.5 - 6.5 K/cumm Imm gran abs 0.0 0.0 - 0.1 K/cumm [facility] ([place]) Lymphocyte abs 3.4(H) 0.8 - 3.3 K/cumm [facility] ([place]) Monocyte abs 1.0(H) 0.2 - 0.8 K/cumm [facility] ([place]) Eosinophil abs 0.3 0.0 - 0.5 K/cumm [facility] ([place]) Basophil abs 0.1 0.0 - 0.1 K/cumm [facility] ([place]) Neutrophil pct 60.6 % [facility] ([place]) Comment: Interpretive Data Percent cell count reference [...] revised on 2018. Blood 12/05/2024 4:44 PM HELMINTHOLOGIST 12/05/2024 4:49 PM HELMINTHOLOGIST Jose D Espinoza MD LAB BLOOD ORDERABLES Final Result Performing Organization Address [facility]/ZIP Co de Phone Number [facility] ([place]) 1 [facility] [place] [address] * ABO / Rh Confirmation Testing (12/05/2024 4:44 PM HELMINTHOLOGIST) ABO/Rh Confirmation A Positive [facility] Blood 12/05/2024 4:44 PM HELMINTHOLOGIST 12/05/2024 8:38 PM HELMINTHOLOGIST Joe Martinez MD LAB BLOOD ORDERABLES Final Res ult Performing Organization Address [facility]/ZIP Co de Phone Number [facility] ([place]) 1 [facility] [place] [address] [facility] * (ABNORMAL) CBC with auto differential (12/05/2024 4:44 PM HELMINTHOLOGIST) WBC 12.2(H) 3.8 - 9.9 K/cumm Hgb 13.6 11.9 - 15.5 g/dL [facility] ([place]) Hct 39.2 35.6 - 45.5 % [facility] ([place]) Plt 255 150 - 400 K/cumm [facility] ([place]) MPV 9.9 9.1 - 12.3 fL [facility] ([place]) RBC 4.35 3.90 - 5.20 M/cumm [facility] ([place]) MCV 90.1 81.3 - 96.4 fL [facility] ([place]) MCH 31.3 27.1 - 33.3 pg [facility] ([place]) MCHC 34.7 32.3 - 35.7 g/dL [facility] ([place]) RDW CV 12.4 11.1 - 14.9 % [facility] ([place]) RDW SD 40.6 35.7 - 48.1 fL [facility] ([place]) NRBC abs 0.00 0.00 - 0.01 K/cumm [facility] ([place]) Blood Venous blood specimen / Unknown 12/05/2024 4:44 PM HELMINTHOLOGIST 12/05/2024 4:49 PM HELMINTHOLOGIST Jose D Espinoza MD LAB BLOOD ORDERABLES Final Result Performing Organization Address [facility] de Phone Number [facility] ([place]) 1 [facility] [employer] [place] [address] * Lipase (12/05/2024 4:44 PM HELMINTHOLOGIST) Pathologist [facility] Lipase 20 10 - 99 Units/L Blood Venous blood specimen / Unknown 12/05/2024 4:44 PM HELMINTHOLOGIST 12/05/2024 4:49 PM HELMINTHOLOGIST Jose D Espinoza MD LAB BLOOD ORDERABLES Final Result Performing Organization Address City/[facility] de Phone Number [facility] ([place]) 1 [facility] [place] [address] * Comprehensive metabolic panel (12/05/2024 4:44 PM HELMINTHOLOGIST) Sodium 137 135 - 145 mmol/L Potassium, pl 4.1 3.3 - 4.9 mmol/L [facility] ([place]) Chloride 103 97 - 110 mmol/L [facility] ([place]) CO2 24 22 - 32 mmol/L [facility] ([place]) Anion gap 10 2 - [...] [facility] ([place]) Blood 12/05/2024 4:44 PM HELMINTHOLOGIST 12/05/2024 4:49 PM HELMINTHOLOGIST Jose D Espinoza MD LAB BLOOD ORDERABLES Final Result [facility] ([place]) 1 [facility] Department [place] [address] from Last 3 Months Insurance IDPA Care Teams Support Technician Relationship Specialty Start Date End Date No, Physician PCP - General 12/05/24
--- OUTSIDE RECORDS SUMMARY | 2025-01-11 02:07 | XMS_ITS | Referral Summary ---
Author Organization [facility] Virtual Care Address [address] [place] [phone] Phone Care Team Providers Care Contract Agent Name Role Phone No, Physician Primary Care Provider [phone] Encounters Date Type Department Care Team Description 12/05/2024 5:59 PM IT APPLICATION ARCHITECT - 12/05/2024 9:24 PM IT APPLICATION ARCHITECT Emergency [facility] Emergency Department [address] [place] [id number] Jose D Espinoza MD Kanumuri, Raghu, MD [...] Comments Blood Pressure 108/66 12/05/2024 9:22 PM IT APPLICATION ARCHITECT Pulse 66 12/05/2024 9:22 PM IT APPLICATION ARCHITECT Temperature 36.3 C (97.3 F) 12/05/2024 4:06 PM IT APPLICATION ARCHITECT Respiratory Rate 16 12/05/2024 9:22 PM IT APPLICATION ARCHITECT Oxygen Saturation 96% 12/05/2024 9:22 PM IT APPLICATION ARCHITECT Inhaled Oxygen Concentration - - Weight 70.3 kg (155 lb) 12/05/2024 4:07 PM IT APPLICATION ARCHITECT Height 154.9 cm (5' 1 ) 12/05/2024 4:07 PM IT APPLICATION ARCHITECT Body Mass Index 29.29 12/05/2024 4:07 PM IT APPLICATION ARCHITECT Plan of Treatment Not on file Procedures Procedure Name Priority Date/Time Associated Diagnosis Comments URINALYSIS, MICROSCOPIC ONLY STAT 12/05/2024 7:35 PM IT APPLICATION ARCHITECT ANTIBODY SCREEN Timed 12/05/2024 7:35 PM IT APPLICATION ARCHITECT ABO/RH Timed 12/05/2024 7:35 PM IT APPLICATION ARCHITECT HCG, BLOOD, QUANTITATIVE STAT 12/05/2024 7:35 PM IT APPLICATION ARCHITECT TYPE AND SCREEN Timed 12/05/2024 7:35 PM IT APPLICATION ARCHITECT URINALYSIS AND REFLEX TO MICROSCOPIC AND CULTURE STAT 12/05/2024 7:35 PM IT APPLICATION ARCHITECT B ABO / RH CONFIRMATION TESTING STAT 12/05/2024 4:44 PM IT APPLICATION ARCHITECT EGFR STAT 12/05/2024 4:44 PM IT APPLICATION ARCHITECT DIFFERENTIAL AUTO STAT 12/05/2024 4:4 4 PM IT APPLICATION ARCHITECT LIPASE STAT 12/05/2024 4:44 PM IT APPLICATION ARCHITECT COMPREHENSIVE METABOLIC PANEL STAT 12/05/2024 4:44 PM IT APPLICATION ARCHITECT CBC WITH AUTO DIFFERENTIAL STAT 12/05/2024 4:44 PM IT APPLICATION ARCHITECT from Last 3 Months Results * (ABNORMAL) Urinalysis reflex to microscopic and culture Urine (12/05/2024 7:35 PM IT APPLICATION ARCHITECT) Color, ur Yellow Yellow Clarity, ur Turbid(A) [...] tendency for uric acid stone formation. Source: [facility] [employer] Current Interpretive Data was last revised on [...] [facility] ([place]) Urine 12/05/2024 7:35 PM IT APPLICATION ARCHITECT 12/05/2024 7:47 PM IT APPLICATION ARCHITECT us Jose D Espinoza MD LAB MICROBIOLOGY - GENERAL ORDERABLES Final Result [facility] ([place]) [address] [facility] [place] [address] * ABO/Rh (12/05/2024 7:35 PM IT APPLICATION ARCHITECT) ABO/Rh A Positive Blood 12/05/2024 7:35 PM IT APPLICATION ARCHITECT 12/05/2024 7:47 PM IT APPLICATION ARCHITECT Narrative [facility] ([place]) - 12/05/2024 8:29 PM IT APPLICATION ARCHITECT Has the patient had Daratumumab or Isatuximab in the past 6 months?->Unknown us Joe Martinez MD LAB BLOOD BANK TEST ORDERABLES Final Result [facility] ([place]) [address] [facility] [place] [address] * (ABNORMAL) Urinalysis, microscopic only (12/05/2024 7:35 PM IT APPLICATION ARCHITECT) WBC, ur 0-5 0 - 5 /HPF RBC, ur 0-2 0 - 2 /HPF [facility] ([place]) Epithelial cells, squamous, ur 11-20(A) 0 - 5 /HPF [facility] ([place]) Mucous, ur Present(A) [facility] Hodgson ([place]) Culture Reflex Comment Reflex conditions for urine culture (WBC >10) not met. [facility] ([place]) Urine 12/05/2024 7:35 PM IT APPLICATION ARCHITECT 12/05/2024 7:47 PM IT APPLICATION ARCHITECT Jose D Espinoza MD LAB URINE ORDERABLES Final Result Performing Organization Address City/[facility]/ZIP Co de Phone Number [facility] ([place]) [address] [place] [address] [place] [address] * Antibody screen (12/05/2024 7:35 PM IT APPLICATION ARCHITECT) Hemalatha, indirect, Gel Interpretation Negative ABSC Blood 12/05/2024 7:35 PM IT APPLICATION ARCHITECT 12/05/2024 7:47 PM IT APPLICATION ARCHITECT Narrative [facility] ([place]) - 12/05/2024 8:44 PM IT APPLICATION ARCHITECT Has the patient had Daratumumab or Isatuximab in the past 6 months?->Unknown Joe Martinez MD LAB BLOOD BANK TEST ORDERABLES Final Result Performing Organization Address City/[facility]/ZIP Co de Phone Number [facility] ([place]) [address] [facility] [place] [address] * (ABNORMAL) hCG, blood, quantitative (12/05/2024 7:35 PM IT APPLICATION ARCHITECT) hCG, quant 88,247.0( H) 0.0 - 5.0 IUnits/L Comment: Interpretive Data Male: < 5 IU/L Non- premenopausal Female: <5 IU/L The [place] hCG Beta Quant assay procedure was used. Results from different manufacturers or methods may not be comparable. Serial testing should be performed using the same method. Interpretive Data was last revised on 2023 Blood 12/05/2024 7:35 PM IT APPLICATION ARCHITECT 12/05/2024 7:47 PM IT APPLICATION ARCHITECT us Joe Martinez MD LAB BLOOD ORDERABLES Final Res ult [facility] ([place]) [address] [facility] [place] [address] * eGFR (12/05/2024 4:44 PM IT APPLICATION ARCHITECT) eGFR >90 >=60 mL/min/1. 73 m2 Comment: [...] last reviewed 2021. Blood 12/05/2024 4:44 PM IT APPLICATION ARCHITECT 12/05/2024 4:49 PM IT APPLICATION ARCHITECT us Jose D Espinoza MD LAB BLOOD ORDERABLES Final Result Performing Organization Address City/[facility]/ZIP Co de Phone Number [facility] ([place]) [address] [place] [address] [place] [address] * (ABNORMAL) Differential, auto (12/05/2024 4:44 PM IT APPLICATION ARCHITECT) Neutrophil abs 7.4(H) 1.5 - 6.5 K/cumm [...] Neutrophil pct 60.6 % [facility] ([place]) Comment: Interpretive [...] revised on 2018. Blood 12/05/2024 4:44 PM IT APPLICATION ARCHITECT 12/05/2024 4:49 PM IT APPLICATION ARCHITECT Jose D Espinoza MD LAB BLOOD ORDERABLES Final Result [facility] ([place]) 1 [facility] [place] [address] * ABO / Rh Confirmation Testing (12/05/2024 4:44 PM IT APPLICATION ARCHITECT) ABO/Rh Confirmation A Positive [facility] Blood 12/05/2024 4:44 PM IT APPLICATION ARCHITECT 12/05/2024 8:38 PM IT APPLICATION ARCHITECT Joe Martinez MD LAB BLOOD ORDERABLES Final Res ult Performing Organization Address City/[facility] Co de Phone Number [facility] ([place]) [address] [facility] [place] [address] [facility] * (ABNORMAL) CBC with auto differential (12/05/2024 4:44 PM IT APPLICATION ARCHITECT) WBC 12.2(H) 3.8 - 9.9 K/cumm Hgb 13.6 11.9 - 15.5 g/dL [facility] ([place]) Hct 39.2 35.6 - 45.5 % [facility] ([place]) Plt 255 150 - 400 K/cumm [facility] ([place]) MPV 9.9 9.1 - 12.3 fL [facility] ([place]) RBC 4.35 3.90 - 5.20 M/cumm [facility] ([place]) MCV 90.1 81.3 - 96.4 [...] blood specimen / Unknown 12/05/2024 4:44 PM IT APPLICATION ARCHITECT 12/05/2024 4:49 PM IT APPLICATION ARCHITECT Jose D Espinoza MD LAB BLOOD ORDERABLES Final Result [facility] ([place]) [address] [facility] [place] [address] * Lipase (12/05/2024 4:44 PM IT APPLICATION ARCHITECT) Lipase 20 10 - 99 Units/L Blood Venous blood specimen / Unknown 12/05/2024 4:44 PM IT APPLICATION ARCHITECT 12/05/2024 4:49 PM IT APPLICATION ARCHITECT Jose D Espinoza MD LAB BLOOD ORDERABLES Final Result Performing Organization Address [facility] de Phone Number [facility] ([place]) [address] [place] [address] * Comprehensive metabolic panel (12/05/2024 4:44 PM IT APPLICATION ARCHITECT) Pathologist [facility] Sodium 137 135 - 145 mmol/L Potassium, pl 4.1 3.3 - 4.9 mmol/L [facility] ([place]) Chloride 103 97 - 110 mmol/L [facility] ([place]) CO2 24 22 - 32 mmol/L [facility] ([place]) Anion gap 10 2 - 15 mmol/L [facility] ([place]) BUN 10 6 - 25 mg/dL [facility] ([place]) Creatinine 0.63 0.60 - 1.10 mg/dL [facility] ([place]) Glucose 92 70 - 199 mg/dL [facility] ([place]) Comment: Interpretive Data Fasting glucose >/= [...] <0.2 0.1 - 1.2 mg/dL [facility] ([place]) Protein, pl 6.5 6.5 - 8.5 g/dL [facility] ([place]) Albumin 3.8 3.5 - 5.0 g/dL [facility] ([place]) Alk phos 56 40 - 130 Units/L [facility] ([place]) ALT 42 7 - 45 Units/L [facility] ([place]) AST 27 10 - 45 Units/L [facility] ([place]) Blood 12/05/2024 4:44 PM IT APPLICATION ARCHITECT 12/05/2024 4:49 PM IT APPLICATION ARCHITECT Jose D Espinoza MD LAB BLOOD ORDERABLES Final Result [facility] ([place]) [address] [facility] [place] [address] from Last 3 Months Insurance IDPA Care Teams Contract Agent Relationship Specialty Start Date End Date No, Physician PCP - General 12/05/24
--- OUTSIDE RECORDS SUMMARY | 2025-01-11 02:07 | XMS_ITS | Clinical Summary ---
Author Organization [facility] Address [address] [place] [address] Phone Care Team Providers Care Hospitality Intern Name Role Phone Provider, None Primary Care [...] this topic Insurance MEDICAID [place] Care Teams Hospitality Intern Relationship Specialty Start Date End Date Provider, None [place] PCP - General 04/13/24
== END 2025-01-10 21:49 | disposition left against medical advice (07) ==
LOC: ANHED 01-11 02:06
PROVIDERS: Emergency Provider Registered Nurse; PCP Emergency Medicine
DX: O99.891 Other specified diseases and conditions complicating pregnancy (principal); K52.9 Noninfective gastroenteritis and colitis, unspecified; Z3A.11 11 weeks gestation of pregnancy
CPT/HCPCS: 76801; 99284

== ENCOUNTER 2025-04-13 20:17 | Observation (INO) | payer OTHER, MEDICAID, SELFPAY ==
--- NOTE | ~2025-04-13 | US_ITS ---
EXAM: RENAL ULTRASOUND HISTORY: Back pain and blood in urine COMPARISON: None FINDINGS: RIGHT KIDNEY: 10.3 x 4.9 x 5.3 cm. The parenchyma of the right kidney is unremarkable in echogenicity. No hydronephrosis or renal calculi. LEFT KIDNEY: 12.2 x 7.0 x 5.0 cm No hydronephrosis or renal calculi. The parenchyma of the left kidney is unremarkable in echogenicity. BLADDER: Decompressed, limiting its evaluation. IMPRESSION: No hydronephrosis or renal calculi. Reviewed, dictated and finalized at location A.
--- OUTSIDE RECORDS SUMMARY | 2025-04-13 20:41 | XMS_ITS | Patient Health Record ---
Author Organization [facility] Address [address] [place] [address] Support Name Relationship Address Phone Satya estelaallegra Emergency Contact Unknown [phone] Saige Sanchez Guarantor Unknown Unavailabl e Allergies Allergen (clinical drug ingredient) Drug/Non Drug Allergy documented on EMR Reaction Allergy Type Onset Date Status enviromental (uncoded) hives Allergy Active Reason For Referral No Information Social History Tobacco Use: Social History Observation Description Date Details (start date - stop date) Current Smoker NA - NA Tobacco Use/Smoking Question Answer Notes Are you a current smoker How many cigarettes a day do you smoke? 6-10 How soon after you wake up d o you smoke your first cigarette? 31-60 minutes Are you interested in quitting? Thinking about q uitting Alcohol Screen (Audit-C) Question Answer Notes Did you have a drink contain ing alcohol in the past year? Yes How often did you have a dri nk containing alcohol in the past year? 2 to 4 times a month (2 points) How many drinks did you have on a typical day when you were drinking in the past year? 1 or 2 drinks (0 point) How often did you have 6 or more drinks on one occasion in the past year? Never (0 point) Points 2 Interpretation Negative Plan Of Treatment No Information Medical (General) History Medical History History ICD Code asthma as child...no sx as adult Surgical History Surgery Date(Month/Year) T & A 10/2009 c section 10/2008 Hospitalization History Reason Date(Month/Year) surgery 10/2008 surgery 10/2009
--- OUTSIDE RECORDS SUMMARY | 2025-04-13 20:41 | XMS_ITS | Data Portability ---
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 Violence N Asthma N Trauma/Violence N Depression/ depression N Heart Disease N Pre-Eclampsia N Hypertension N Osteoporosis N Thrombophilias N Gynecological History Statement/Question Response Date of LMP 10/22/2024 On BCP's at Conception? N N Was last menstrual period normal Y STIs/STDs N HPV Vaccine Y Duration of Flow (days) 3 Current Control Method Age at First Child 18 Date of control 01/24/2025 Are cycles usually normal Y Frequency of Cycle (Q days) 29 Sexually Active? Y Menses Monthly Y Age of first menstrual cycle 10 Date of Last Pap Smear 02/26/2022 Sexual Problems? N Desired Control Method Condoms LMP Definite N Obstetrics History GPAL:G 4 P 0 0 1 3 Type Value Spontaneous 1 Living 3 Total 4 Past Encounters Encounter ID Performer Location Encounter Start Date Encounter Closed Date Diagnosis/Indication Diagnosis SNOMED-CT Code Diagnosis ICD10 Code Diagnosis Note [id number] BENNY BARRETO MD [place] [address],[place] [address] 01/26/2025 16:03:59 01/26/2025 16:54:41 screening [id number] Z36.82 Z3A.13 [id number] BENNY BARRETO MD [facility] [address],[place] [address] 01/26/2025 16:05:12 01/26/2025 17:33:42 screening 311819250 Z36.89 Genetic in vestigation procedure 41810971 Z31.430 test positive 318948784 Z32.01 1. Exam today within normal limits.2. Ultrasound today confirms GA and viability. EDC . KADE/Tosha a testing done: will f/u as indicated. 4. ACOG guidelines and plan of care for reviewed with patient. All questions answered.5 . Return to office at 16 weeks for new OB visit6. Genetic screening: desires, will draw today. Tobacco user 039174911 Z 72.0 - discussed recommenda tion for cessation [id number] Don Sanders MD [place] [address],[place] [address] 02/19/2025 10:41:01 02/19/2025 11:19:07 Urinary symptoms 431802555 R39.9 care status 24 5279471 Z34.92 Acute urin harpreet tract infection 298073286 N39.0 [id number] MD Kasey Conde [address],[place] [address] 03/17/2025 16:09:22 03/17/2025 17:18:22 screening for malformation 540799131 Z36.3 Z3A.20 [id number] Don Sanders MD [place] [address] [address] 03/17/2025 16:10:13 03/18/2025 05:51:51 Vaginitis 92833287 N76.0 Abnormal u terine bleeding 2539290883 9100 N93.9 care status 24 9406579 Z34.82 Health Concerns Section Related Observation LastModified by Organization Detai ls LastModified Time None Recorded Concern Status LastModified by Organization Details LastModified Time None Recorded Advance Directives Directive N: Payers Insurance Date Sequence Insurance Name Policy Number Policy Wallis Covered Member ID Wallis Member ID Guarantor Name 04/12/2025 1 [facility] [id number] Saige Sanchez [id number] Saige Sanchez 04/12/2025 2 [place] [facility] Saige Sanchez [id number] Saige Sanchez Notes Date Note Type Note Provider Name and Address Organization Details Recorded Time 01/26/2025 text/html Presents to the office today to confirm . Patient denies any problems up to this point with her . Patient denies cramping or vaginal bleeding. Mild nausea. Hx of c section x3, otherwise uncomplicated . Lives with her two kids. 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 Denies EtOH/illicits. 0.5ppd smoker. [facility] 01/26/2025 17:32:51 OBGyn Episode Ob Episode Information Episode Created Date Number of Fetuses Patient Bloodtype Patient rh Status Prepregnancy Weight lbs Domestic Partner Domestic Partner Phone Father Name Business Development Professional Status 02/20/20 25 1 A Positive 173 OPEN Fetus Data First Name Last Name Admitted to NICU Weight (g) Sex Living Outcome Pediatric Complications Fetus ID Race Codes Race Delivery Type [id number] Problems Problem Notes Problem Name Start Date End Date Resolution Snomed Code Not e Deliveries by 02/19/2025 467013 004 X3 - to repeat, Rojelio Calculation Initial Rojelio Date Initial Exam Date Initial Exam Provider Initial Ultrasound Date Last Menstrual Period Date Ultra Sound Weeks Gestation 02/19/2025 01/26/2025 10/22/2024 14 Eighteen To Twenty Week Rojelio Update Ultra Sound Date Fundal Height At Umbil Quickening Date Ultra Sound Latest Weeks Gestation Final Rojelio Confirmed By Final Rojelio Confirmed Date Final Rojelio Date Ultra Sound Latest Days Gestation 03/17/20 25 21 [email or web address] 02/19/2025 07/29/20 25 3 Pre- Flowsheet Flowsheet Date 02/19/2025 Marroquin Score Blood Edema Fundus Height Fundus Units Glucose Ketones Leukocytes Nitrite Labor Signs Protein Cervic Dilation Cervic Effacement Cervic Station Type Weight in lbs Pre/Post Dialysis Refused 172.885008302800 BP Diastolic BP Location Tested BP Systolic BP Type 69 L arm 105 sitting Fetus Heart Rate Present A 136 Present Fetus Movement A No Comments this patient is a 34-year-ol d multiparous female at 17 weeks' gestation who presents for initial care. She has a history of term delivery. Her medical, surgical, obstetric history is unremarkable. She is vaccinated. She was given precautions recommendations for . We talked about vaccines in . Talked about care in detail. She is having genetic testing. She had a normal 12 week ultrasound. To begin routine care. Flowsheet Date 03/17/2025 Marroquin Score Blood Edema Fundus Height Fundus Units Glucose Ketones Leukocytes Nitrite Labor Signs Protein Cervic Dilation Cervic Effacement Cervic Station Type Weight in lbs Pre/Post Dialysis Refused BP Diastolic BP Location Tested BP Systolic BP Type Fetus Heart Rate Present Fetus Movement Comments Flowsheet Date 03/17/2025 Marroquin Score Blood Edema Fundus Height Fundus Units Glucose Ketones Leukocytes Nitrite Labor Signs Protein Cervic Dilation Cervic Effacement Cervic Station Type Weight in lbs Pre/Post Dialysis Refused Weight 174.298762419333 BP Diastolic BP Location Tested BP Systolic BP Type 63 111 sitting Fetus Heart Rate Present Fetus Movement A Yes Comments foul smelling vaginal discha rge -treated, otherwise, no complaints, no problems, routine care, no contractions, no vaginal bleeding, no loss of fluid, no cramping Menstrual History Last Menstrual Date Menses Monthly On Bcp Conception Prior Menses Frequency Hcg Plus Date Menarche Onset Age 1210/22/2024 true 29 Delivery Information Delivery Date Delivery Type Labor Anesthesia Weeks Gestation Incision Type Labor Labor Length Hrs Delivered By Post Complications Tubal Sterilization Discharge Date Comments Discharge Information Feeding Method Contraceptive Method Maternal HG B and HCT Levels Ob Episode Information Episode Created Date Number of Fetuses Patient Bloodtype Patient rh Status Prepregnancy Weight lbs Domestic Partner Domestic Partner Phone Father Name Business Development Professional Status 01/27/20 25 1 CLOSED Fetus Data First Name Last Name Admitted to NICU Weight (g) Sex Living Outcome Pediatric Complications Fetus ID Race Codes Race Delivery Type M Full Term [id number] Repeat Rojelio Calculation Initial Rojelio Date Initial Exam Date Initial Exam Provider Initial Ultrasound Date Last Menstrual Period Date Ultra Sound Weeks Gestation 0 Eighteen To Twenty Week Rojelio Update Ultra Sound Date Fundal Height At Umbil Quickening Date Ultra Sound Latest Weeks Gestation Final Rojelio Confirmed By Final Rojelio Confirmed Date Final Rojelio Date Ultra Sound Latest Days Gestation 0 0 Menstrual History Last Menstrual Date Menses Monthly On Bcp Conception Prior Menses Frequency Hcg Plus Date Menarche Onset Age Delivery Information Delivery Date Delivery Type Labor Anesthesia Weeks Gestation Incision Type Labor Labor Length Hrs Delivered By Post Complications Tubal Sterilization Discharge Date Comments 0 39 Discharge Information Feeding Method Contraceptive Method Maternal HG B and HCT Levels Ob Episode Information Episode Created Date Number of Fetuses Patient Bloodtype Patient rh Status Prepregnancy Weight lbs Domestic Partner Domestic Partner Phone Father Name Business Development Professional Status 01/27/20 1 CLOSED Fetus Data First Name Last Name Admitted to NICU Weight (g) Sex Living Outcome Pediatric Complications Fetus ID Race Codes Race Delivery Type F Full Term [id number] Repeat Rojelio Calculation Initial Rojelio Date Initial Exam Date Initial Exam Provider Initial Ultrasound Date Last Menstrual Period Date Ultra Sound Weeks Gestation 0 Eighteen To Twenty Week Rojelio Update Ultra Sound Date Fundal Height At Umbil Quickening Date Ultra Sound Latest Weeks Gestation Final Rojelio Confirmed By Final Rojelio Confirmed Date Final Rojelio Date Ultra Sound Latest Days Gestation 0 0 Menstrual History Last Menstrual Date Menses Monthly On Bcp Conception Prior Menses Frequency Hcg Plus Date Menarche Onset Age Delivery Information Delivery Date Delivery Type Labor Anesthesia Weeks Gestation Incision Type Labor Labor Length Hrs Delivered By Post Complications Tubal Sterilization Discharge Date Comments 2 39 Discharge Information Feeding Method Contraceptive Method Maternal HG B and HCT Levels Ob Episode Information Episode Created Date Number of Fetuses Patient Bloodtype Patient rh Status Prepregnancy Weight lbs Domestic Partner Domestic Partner Phone Father Name Business Development Professional Status 01/27/20 25 1 CLOSED Fetus Data First Name Last Name Admitted to NICU Weight (g) Sex Living Outcome Pediatric Complications Fetus ID Race Codes Race Delivery Type F Full Term [id number] Primary Rojelio Calculation Initial Rojelio Date Initial Exam Date Initial Exam Provider Initial Ultrasound Date Last Menstrual Period Date Ultra Sound Weeks Gestation 0 Eighteen To Twenty Week Rojelio Update Ultra Sound Date Fundal Height At Umbil Quickening Date Ultra Sound Latest Weeks Gestation Final Rojelio Confirmed By Final Rojelio Confirmed Date Final Rojelio Date Ultra Sound Latest Days Gestation 0 0 Menstrual History Last Menstrual Date Menses Monthly On Bcp Conception Prior Menses Frequency Hcg Plus Date Menarche Onset Age Delivery Information Delivery Date Delivery Type Labor Anesthesia Weeks Gestation Incision Type Labor Labor Length Hrs Delivered By Post Complications Tubal Sterilization Discharge Date Comments 9 40.4 Discharge Information Feeding Method Contraceptive Method Maternal HG B and HCT Levels Ob Episode Information Episode Created Date Number of Fetuses Patient Bloodtype Patient rh Status Prepregnancy Weight lbs Domestic Partner Domestic Partner Phone Father Name Business Development Professional Status 01/27/20 25 1 CLOSED Fetus Data First Name Last Name Admitted to NICU Weight (g) Sex Living Outcome Pediatric Complications Fetus ID Race Codes Race Delivery Type , Spontane ous [id number] Rojelio Calculation Initial Rojelio Date Initial Exam Date Initial Exam Provider Initial Ultrasound Date Last Menstrual Period Date Ultra Sound Weeks Gestation 0 Eighteen To Twenty Week Rojelio Update Ultra Sound Date Fundal Height At Umbil Quickening Date Ultra Sound Latest Weeks Gestation Final Rojelio Confirmed By Final Rojelio Confirmed Date Final Rojelio Date Ultra Sound Latest Days Gestation 0 0 Menstrual History Last Menstrual Date Menses Monthly On Bcp Conception Prior Menses Frequency Hcg Plus Date Menarche Onset Age Delivery Information Delivery Date Delivery Type Labor Anesthesia Weeks Gestation Incision Type Labor Labor Length Hrs Delivered By Post Complications Tubal Sterilization Discharge Date Comments 4 6 Discharge Information Feeding Method Contraceptive Method Maternal HG B and HCT Levels
--- OUTSIDE RECORDS SUMMARY | 2025-04-13 20:41 | XMS_ITS | Clinical Summary ---
Author Organization [facility] Address [address] [place] [address] Phone Care Team Providers Care Fishing Lure Assembler Name Role Phone Provider, None Primary Care [...] 5:37 PM CDT Height 154.9 cm (5' 1) 04/13/2024 5:37 PM CDT Body Mass Index 28.72 04/13/2024 5:37 PM CDT Plan of Treatment Health Maintenance Due Date Last Done Comments Hepatitis C Virus (HCV) Screening 1991 TdaP Immunization 1991 Hepatitis B Immunization (1 of 3 - 19+ 3-dose series) 2010 Pneumococcal Immunization Co mbined (1 of 2 - PCV) 2010 Pap Smear 2012 Cervical Cancer Screening (CCS) 2021 HPV/Cotest 2021 SARS-COV-2 Immunization (1 - 2023- season) 2024 Influenza Immunization (Seas on Ended) 2025 Respiratory Syncytial Virus (RSV) Immunization (Adult) (1 - 1-dose 75+ series) 2066 Human Papillomavirus (HPV) Immunization Aged Out No longer eligible b ased on patient's age to complete this topic Meningococcal Immunization (ACWY) Aged Out No longer eligible based on patient's age to complete this topic Rotavirus Immunization Aged Out No lo nger eligible based on patient's age to complete this topic Insurance MEDICAID [place] Care Teams Fishing Lure Assembler Relationship Specialty Start Date End Date Provider, None [place] PCP - General 04/13/24
--- OUTSIDE RECORDS SUMMARY | 2025-04-13 20:41 | XMS_ITS | Continuity of Care Document ---
Author Organization [facility] Address [address] [place] [address] Phone Care Team Providers Care Auto Air Conditioning Installer Name Role Phone ROBERT Borrero Valerie Unavailable [...] DIAGNOSTIC EVALUATION Mental Health Rate OFFICE/OUTPATIENT VISIT, [facility] Advance Directives Directive Yes / No Effective Date File Name No Information Encounters Encounter Description Practice Location Reason(s) For Visit Diagnoses Date Provider Providers Copied on Encounter [facility], [address], [place], [id number] , [place] tel:[phone] Behavorial Health No Information 2 ROBERT Borrero. [address], [place], [id number] , [place]. tel: [phone] [facility], [address], [place], [id number] , [place] tel: [phone] Behavorial Health Post-traumatic stress disorder 1 CapAMINA finnC Lorna. [address], [place], [id number] , [place]. tel: [phone] PSYTX PT&/FAMILY 60 MINUTES [facility], [address] [place] [address], [id number] , [place] tel: [phone] Behavorial Health Post-traumatic stress disorder 1 ROBERT Borrero Lorna. [address], [place], [id number] , [place]. tel: [phone] PSYTX PT&/FAMILY 60 MINUTES [facility], [address] [place] [address], [id number] , [place] tel: [phone] Behavorial Health Post-traumatic stress disorder 1 AMINA BorreroC Lorna. [address] [place] [address], [id number] , [place]. tel: [phone] PSYTX PT&/FAMILY 45 MINUTES [facility], [address] [place] [address], [id number] , [place] tel: [phone] Behavorial Health Post-traumatic stress disorder 0 Capjacquelineini, AMINAC Lorna. [address], [place], [id number] , [place]. tel: [phone] PSYTX PT&/FAMILY 60 MINUTES [facility], [address] [place] [address], [id number] , [place] tel: [phone] Behavorial Health Post-traumatic stress disorder 0 Capucini, AMINAC Lorna. [address] [place] [address], [id number] , [place]. tel: [phone] PSYTX PT&/FAMILY 60 MINUTES [facility], [address], [place], [id number] , [place] tel: [phone] Behavorial Health Post-traumatic stress disorder 0- 0 CapROBERT finn Lorna. [address], [place], [id number] , [place]. tel: [phone] PSYTX PT&/FAMILY 45 MINUTES [facility], [address], [place], [id number] , [place] tel: [phone] Behavorial Health Post-traumatic stress disorder 0 CapucROBERT rodgers Lorna. [address], [place], [id number] , [place]. tel: [phone] [facility], [address] [place] [address], [id number] , [place] tel: [phone] [facility] No Information 0 Pavlock DO Max. [address], [place], [id number] , [place]. tel: [phone] OFFICE/OUTPA TIENT VISIT, EST [facility], [address] [place] [address], [id number] , [place] tel: [phone] [facility] F/U (chief complaint) depression (chief complaint) depression 0 Pavlock DO Max. [address], [place], [id number] , [place]. tel: [phone] PSYTX PT&/FAMILY 45 MINUTES [facility], [address] [place] [address], [id number] , [place] tel: [phone] Behavorial Health Post-traumatic stress disorder 0 ROBERT Borrero Lorna. [address] [place] [address], [id number] , [place]. tel: [phone] PSYTX PT&/FAMILY 60 MINUTES [facility], [address] [place] [address], [id number] , [place] tel: [phone] Behavorial Health Post-traumatic stress disorder 0 Capucini, LPCC Lorna. [address] [place] [address], [id number] , [place]. tel: [phone] PSYTX PT&/FAMILY 60 MINUTES [facility], [address] [place] [address], [id number] , tel: [phone] Behavorial Health Post-traumatic stress disorder 0 Capucini, LPCC Lorna. [address] [place] [address], [id number] , [place]. tel: [phone] PSYTX PT&/FAMILY 60 MINUTES [facility], [address] [place] [address], [id number] , [place] tel: [phone] Behav[facility] Health Post-traumatic stress disorder 0 Capucvishal, LPCC Lorna. [address] [place] [address], [id number] , [place]. tel: [phone] PSYCH DIAGNOSTIC EVALUATION [facility], [address] [place] [address], [id number] , tel: [phone] Behav[facility] Post-traumatic stress disorder 0 Capucini, CigitalC Lorna. [address] [place] [address], [id number] , [place]. tel: [phone] OFFICE/OUTPA TIENT VISIT, [facility], [address] [place] [address], [id number] , tel: [phone] [facility] Est Care (chief complaint) Anxiety (chief complaint) Body mass index [BMI] 31.0-31.9, adultPTSD (post-traumatic stress disorder) depressionPostpartu m depression 0 Pavlock DO Max. [address] [place] [address], [id number] , [place]. tel:+ [phone] Family History Family Member Type Diagnosis Age At Onset No Information Payers Payer name Insurance type Covered alliance party ID Edmund fields(s) Medicaid [facility] [id number] Social History Type Description Quantity Date Captured [...] conselors. Pt states she is orginally from [place] and just moved up here. 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
--- OUTSIDE RECORDS SUMMARY | 2025-04-13 20:41 | XMS_ITS | Clinical Summary ---
Author Organization [facility] Virtual Care Address [address] [place] [phone] Phone Care Team Providers Care Movie Theater Usher Name Role Phone No, Physician Primary Care Provider [phone] Allergies No known active allergies Medications acetaminophen (TYLENOL) 500 mg tabletIndicati ons:Tension headache Take 1 tablet (500 mg total) by mouth every 6 (six) hours as needed for pain Collaborating physician Jose D Espinoza MD 30 tablet Active Active Problems Problem Noted Date Diagnosed Date Hematuria 02/08/2025 Proteinuria 02/08/2025 Cystitis 02/08/2025 Near syncope 02/08/2025 Tension headache 02/08/2025 Encounters Date Type Department Care Team Description 02/08/2025 4:24 PM CDT - 02/08/2025 7:08 PM CDT Emergency [facility] Emergency Department [address] [place] [id number] Hematuria, unspecified type (Primary Dx); Proteinuria, unspecified type; Cystitis; Near syncope; Tension headache Discharge Disposition: Discharge to home or self care from Last 3 Months Social History Tobacco Use Types Packs/Day Years Used Date Smoking Tobacco: Never Assessed Personal Safety Answer Date Recorded Have you ever been in or are you currently in a harmful physical or emotional relationship or is someone making you feel afraid or unsafe? Denies 02/08/2025 Comments Unknown Sex and Gender Information Value Date Recorded Sex Assigned at Not on file Legal Sex Female 4:46 PM CDT Gender Identity Not on file Sexual Orientation Not on file Obstetrics History Para Term AB IAB SAB Ectopic Multiple Livin g Live Births 1 Date Outcome GA Total Labor Labor/2nd/3rd Weight Sex Type Anes PTL Lily A1 A5 Name Clin Last Filed Vital Signs Vital Sign Reading Time Taken Comments Blood Pressure 110/74 02/08/2025 7:07 PM CDT Pulse 80 02/08/2025 7:07 PM CDT Temperature 36.8 C (98.2 F) 02/08/2025 4:01 PM CDT Respiratory Rate 20 02/08/2025 7:07 PM CDT Oxygen Saturation 98% 02/08/2025 7:07 PM CDT Inhaled Oxygen Concentration - - Weight 78.9 kg (174 lb) 02/08/2025 4:01 PM CDT Height 154.9 cm (5' 1) 02/08/2025 4:01 PM CDT Body Mass Index 32.88 02/08/2025 4:01 PM CDT Plan of Treatment Health Maintenance Due Date Last Done Comments Depression Screening 1991 Hepatitis C Screening 1991 DTaP/Tdap/Td Vaccine (1 - Tdap) 2002 Varicella Vaccines (1 of 2 - 13+ 2-dose series) 2004 Hepatitis B Screening 2009 Regular Well Visit/Exam 18-64 2009 Pneumococcal vaccine <65 (1 of 2 - PCV) 2010 Cervical Cancer Screening 12/19/2022 12/19/2021 Influenza Vaccine (Season Ended) 2025 HPV Vaccines Aged Out No longer eligi ble based on patient's age to complete this topic Procedures Procedure Name Priority Date/Time Associated Diagnosis Comments URINE CULTURE STAT 02/08/2025 6:35 PM CDT URINALYSIS, MICROSCOPIC ONLY STAT 02/08/2025 6:01 PM CDT URINALYSIS AND REFLEX TO MICROSCOPIC AND CULTURE STAT 02/08/2025 6:01 PM CDT EGFR STAT 02/08/2025 5:03 PM CDT DIFFERENTIAL AUTO STAT 02/08/2025 5:0 3 PM CDT HCG, BLOOD, QUANTITATIVE STAT 02/08/2025 5:03 PM CDT CBC WITH AUTO DIFFERENTIAL STAT 02/08/2025 5:03 PM CDT COMPREHENSIVE METABOLIC PANEL STAT 02/08/2025 5:03 PM CDT from Last 3 Months Results * Urine culture Urine, clean voided (02/08/2025 6:35 PM CDT) Report Final Report: Less than 100,000 colonies/mL (clinically insignificant growth based on current clinical standards) Comment:Testing performed by : [facility], [address] [place] [address] Organism (CLINICALLY INSIGNIFICANT GROWTH KATIANA PERES ([place]) Urine, clean voided 02/08/2025 6:35 PM CDT 02/08/2025 10:33 PM CDT Narrative KATIANA PERES ([place]) - 02/10/2025 8:28 AM CDT Indications for Culture:-> patient Specimen received in a sterile container. Testing performed by [facility] ([phone]) [facility] MICROBIOLOGY - GENERAL O RDERABLES Final Result KATIANA [facility] ([place]) 1 [facility] Department [place] [address] * (ABNORMAL) Urinalysis reflex to microscopic and culture Urine, clean voided (02/08/2025 6:01 PM CDT) Color, ur Yellow Yellow Clarity, ur Turbid(A) Clear KAITANA Hodgson ([place]) Specific gravity, ur 1.025 1.003 - 1.030 KATIANA PERES ([place]) pH, urine 6.0 KATIANA PERES ([place]) Comment: Interpretive Data U rine pH is affected by diet, medications, systemic acid-base disturbances, and renal tubular function. pH may affect urinary stone formation. For example, urine pH below 6.0 may help reduce the tendency for calcium phosphate stones and pH greater than 6.0 may reduce the tendency for uric acid stone formation. Source: [facility] Current Interpretive Data was last revised on [...] [facility] ([place]) Leukocyte esterase, ur 1+(A) Negative [facility] ([place]) UA reflex comment Reflex to microscopic UA will be performed. [facility] ([place]) Urine, clean voided 02/08/2025 6:01 PM CDT 02/08/2025 6:04 PM CDT [facility] MICROBIOLOGY - GENERAL O RDERABLES Final Result KATIANA PERES ([place]) 1 [facility] Department [place] [address] * (ABNORMAL) Urinalysis, microscopic only (02/08/2025 6:01 PM CDT) WBC, ur 0-5 0 - 5 /HPF RBC, ur >50(A) 0 - 2 /HPF [facility] ([place]) Epithelial cells, squamous, ur 21-50(A) 0 - 5 /HPF [facility] ([place]) Mucous, ur Present(A) [facility] ([place]) Culture Reflex Comment Reflex conditions for urine culture (WBC >10) not met. KATIANA PERES ([place]) Urine, clean voided 02/08/2025 6:01 PM CDT 02/08/2025 6:04 PM CDT us [facility] URINE ORDERABLES Final R esult KATIANA PERES ([place]) 1 [facility] Department [place] [address] * eGFR (02/08/2025 5:03 PM CDT) Pathologist [facility] eGFR >90 >=60 mL/min/1. 73 m2 Comment: [...] interpretive data was last reviewed 2021. Blood 02/08/2025 5:03 PM CDT 02/08/2025 5:07 PM CDT Arjun [facility] BLOOD ORDERABLES Final R esult KATIANA PERES ([place]) 1 [facility] Department [place] [address] * Differential, auto (02/08/2025 5:03 PM CDT) Neutrophil abs 6.31 1.50 - 6.50 K/cumm Imm gran abs 0.02 0.00 - 0.10 K/cumm [facility] ([place]) Lymphocyte abs 2.07 0.80 - 3.30 K/cumm [facility] ([place]) Monocyte abs 0.28 0.20 - 0.80 K/cumm [facility] ([place]) Eosinophil abs 0.19 0.00 - 0.50 K/cumm [facility] ([place]) Basophil abs 0.02 0.00 - 0.10 K/cumm [facility] ([place]) Neutrophil pct 71.1 % [facility] ([place]) Comment: Interpretive [...] was last revised on 2018. Lymphocyte pct 23.3 % [facility] ([place]) Comment: Interpretive Data Percent cell count reference ranges are not reported, since discordance with absolute values may lead to misinterpretation of CBC data. Current Interpretive Data was last revised on 2018. Monocyte pct 3.1 % [facility] ([place]) Comment: Interpretive Data Percent cell count reference ranges are not reported, since discordance with absolute values may lead to misinterpretation of CBC data. Current Interpretive Data was last revised on 2018. Eosinophil pct 2.1 % [facility] ([place]) Comment: Interpretive Data Percent cell count reference ranges are not reported, since discordance with absolute values may lead to misinterpretation of CBC data. Current Interpretive Data was last revised on 2018. Basophil pct 0.2 % [facility] ([place]) Comment: Interpretive Data Percent cell count reference ranges are not reported, since discordance with absolute values may lead to misinterpretation of CBC data. Current Interpretive Data was last revised on 2018. Blood 02/08/2025 5:03 PM CDT 02/08/2025 5:07 PM CDT us [facility] BLOOD ORDERABLES Final R esult KATIANA PERES ([place]) 1 [facility] Department [place] [address] * (ABNORMAL) CBC with auto differential (02/08/2025 5:03 PM CDT) WBC 8.89 3.80 - 9.90 K/cumm Hgb 10.8(L) 11.9 - 15.5 g/dL [facility] ([place]) Hct 30.7(L) 35.6 - 45.5 % [facility] ([place]) Plt 220 150 - 400 K/cumm [facility] ([place]) MPV 10.1 9.1 - 12.3 fL [facility] ([place]) RBC 3.34(L) 3.90 - 5.20 M/cumm [facility] ([place]) MCV 91.9 81.3 - 96.4 fL [facility] ([place]) MCH 32.3 27.1 - 33.3 pg [facility] ([place]) MCHC 35.2 32.3 - 35.7 g/dL [facility] ([place]) RDW CV 13.6 11.1 - 14.9 % [facility] ([place]) RDW SD 45.8 35.7 - 48.1 fL [facility] ([place]) NRBC abs 0.00 0.00 - 0.01 K/cumm [facility] ([place]) Blood 02/08/2025 5:03 PM CDT 02/08/2025 5:07 PM CDT us Ajrun [facility] BLOOD ORDERABLES Final R esult [facility] ([place]) 1 [facility] Department [place] [address] * (ABNORMAL) hCG, blood, quantitative (02/08/2025 5:03 PM CDT) hCG, quant 25,202.0( H) 0.0 - 5.0 IUnits/L Comment: Interpretive Data Male: < 5 IU/L Non- premenopausal Female: <5 IU/L The [place] hCG Beta Quant assay procedure was used. Results from different manufacturers or methods may not be comparable. Serial testing should be performed using the same method. Interpretive Data was last revised on 2023 Blood 02/08/2025 5:03 PM CDT 02/08/2025 5:07 PM CDT us [facility] BLOOD ORDERABLES Final R esult [facility] ([place]) 1 [facility] Department [place] [address] * (ABNORMAL) Comprehensive metabolic panel (02/08/2025 5:03 PM CDT) Sodium 139 135 - 145 mmol/L Potassium, pl 3.8 3.3 - 4.9 mmol/L [facility] ([place]) Chloride 105 97 - 110 mmol/L [facility] ([place]) CO2 21(L) 22 - 32 mmol/L [facility] ([place]) Anion gap 13 2 - 15 mmol/L [facility] ([place]) BUN 9 6 - 25 mg/dL [facility] ([place]) Creatinine 0.57(L) 0.60 - 1.10 mg/dL [facility] ([place]) Glucose 148 70 - 199 mg/dL [facility] ([place]) [...] interpretive data was last revised 2022. Calcium 9.2 8.5 - 10.3 mg/dL [facility] ([place]) Bilirubin, total <0.2 0.1 - 1.2 mg/dL [facility] ([place]) Protein, pl 6.2(L) 6.5 - 8.5 g/dL [facility] ([place]) Albumin 3.5 3.5 - 5.0 g/dL [facility] ([place]) Alk phos 52 40 - 130 Units/L [facility] ([place]) ALT 21 7 - 45 Units/L [facility] ([place]) AST 17 10 - 45 Units/L [facility] ([place]) Blood 02/08/2025 5:03 PM CDT 02/08/2025 5:07 PM CDT us Arjun [facility] BLOOD ORDERABLES Final R esult [facility] ([place]) 1 [facility] [place] [address] from Last 3 Months Insurance IDPA [facility] [employer] ID Care Teams Movie Theater Usher Relationship Specialty Start Date End Date No, Physician PCP - General 12/05/24
--- OUTSIDE RECORDS SUMMARY | 2025-04-13 20:41 | XMS_ITS | Referral Summary ---
Author Organization [facility] Virtual Care Address [address] [place] [phone] Phone Care Team Providers Care Superintendent Transmission Name Role Phone No, Physician Primary Care Provider Encounters Date Type Department Care Team Description 02/08/2025 4:24 PM CDT - 02/08/2025 7:08 PM CDT Emergency [facility] Emergency Department [address] [place] [id number] Hematuria, unspecified type (Primary Dx); Proteinuria, unspecified type; Cystitis; Near syncope; Tension headache Discharge Disposition: Discharge to home or self care from Last 3 Months Allergies No known active allergies Medications acetaminophen (TYLENOL) 500 mg tabletIndicati ons:Tension headache Take 1 tablet (500 mg total) by mouth every 6 (six) hours as needed for pain Collaborating physician Jose D Espinoza MD 30 tablet Active Active Problems Problem Noted Date Diagnosed Date Hematuria 02/08/2025 Proteinuria 02/08/2025 Cystitis 02/08/2025 Near syncope 02/08/2025 Tension headache 02/08/2025 Social History Tobacco Use Types Packs/Day Years [...] 02/08/2025 4:01 PM CDT Plan of Treatment Not on file Procedures [...] current clinical standards) Comment:Testing performed by : [facility], [address] [facility] [place]., [address] Organism (CLINICALLY INSIGNIFICANT GROWTH [facility] ([place]) Urine, clean voided 02/08/2025 6:35 PM CDT 02/08/2025 10:33 PM CDT Narrative [facility] ([place]) - 02/10/2025 8:28 AM CDT Indications for Culture:-> patient Specimen received in a sterile container. Testing performed by [facility] ([phone]) Arjun [facility] MICROBIOLOGY - GENERAL O RDERABLES Final Result [facility] ([place]) 1 [facility] Department [place] [address] * (ABNORMAL) Urinalysis reflex to microscopic and culture Urine, clean voided (02/08/2025 6:01 PM CDT) Color, ur Yellow Yellow Clarity, ur Turbid(A) Clear [facility] ([place]) Specific gravity, ur 1.025 1.003 - 1.030 [facility] ([place]) pH, [...] uric acid stone formation. Source: [facility] Current Interpretive Data was last revised on [...] to microscopic UA will be performed. CERNER [facility] ([place]) Urine, clean voided 02/08/2025 6:01 PM CDT 02/08/2025 6:04 PM CDT Arjun [facility] MICROBIOLOGY - GENERAL O RDERABLES Final Result Performing Organization Address [facility] Co de Phone Number KATIANA [facility] ([place]) 1 [place] [address] * (ABNORMAL) Urinalysis, microscopic only (02/08/2025 6:01 PM CDT) WBC, ur 0-5 0 - 5 /HPF RBC, ur >50(A) 0 - 2 /HPF KATIANA [facility] ([place]) Epithelial cells, squamous, ur 21-50(A) 0 - 5 /HPF KATIANA [facility] ([place]) Mucous, ur Present(A) KATIANA Hodgson ([place]) Culture Reflex Comment Reflex conditions for urine culture (WBC >10) not met. KATIANA [facility] ([place]) Urine, clean voided 02/08/2025 6:01 PM CDT 02/08/2025 6:04 PM CDT Arjun [facility] URINE ORDERABLES Final R esult Performing Organization Address [facility] Co de Phone Number KATIANA PERES ([place]) [address] [place] [address] * eGFR (02/08/2025 5:03 PM CDT) eGFR >90 >=60 mL/min/1. 73 m2 Comment: [...] BLOOD ORDERABLES Final R esult KATIANA PERES ([place]) 1 [facility] Department [place] [address] * Differential, auto (02/08/2025 5:03 PM CDT) [...] Final R esult [facility] ([place]) 1 [facility] Department [place] [address] * (ABNORMAL) CBC with auto differential (02/08/2025 [...] ([place]) MCHC 35.2 32.3 - 35.7 g/dL [facility] ([place]) RDW CV 13.6 11.1 - 14.9 % [facility] ([place]) RDW SD 45.8 35.7 - 48.1 fL [facility] ([place] NRBC abs 0.00 0.00 - 0.01 K/cumm [facility] ([place]) Blood 02/08/2025 5:03 PM CDT 02/08/2025 5:07 PM CDT Arjun [facility] BLOOD ORDERABLES Final R esult Performing Organization Address City/[facility]/ZIP Co de Phone Number KATIANA PERES ([place]) 1 [facility] [place] [address] * (ABNORMAL) hCG, blood, quantitative (02/08/2025 5:03 PM CDT) Pathologist [facility] [place] hCG, quant 25,202.0( H) 0.0 - 5.0 [...] BLOOD ORDERABLES Final R esult KATIANA PERES ([place]) 1 [facility] [place] [address] * (ABNORMAL) Comprehensive metabolic panel (02/08/2025 5:03 PM CDT) Sodium 139 135 - 145 mmol/L Potassium, pl 3.8 3.3 - 4.9 mmol/L [facility] ([place]) Chloride 105 97 - 110 mmol/L [facility] ([place]) CO2 21(L) 22 - 32 mmol/L [...] Final R esult [facility] ([place]) 1 [facility] Department [place] [address] from Last 3 Months Insurance IDPA [facility] [employer] [place] Care Teams Superintendent Transmission Relationship Specialty Start Date End Date No, Physician PCP - General 12/05/24
[2025-04-13 20:46] VITALS: BP 99/59; PULSE 77; RESP 18; TEMP 36.8; BMI 33.5
--- NOTE | 2025-04-13 20:59 | OBADM ---
This patient, Saige Sanchez, admitted to the OB room 116 for observation. Patient/family oriented to hospital policies and general routines including ID bracelet, bed and alarms, visiting hours, pain management, procedures, bathroom and other care routines, personal items, smoking policy, room service/diet, and visiting hours. Patient/Family are encouraged to report perceived risks to care and to ask questions if they do not understand what they are told or what they should do.
[2025-04-13 21:00] VITALS: BP 102/58; PULSE 79
[2025-04-13 21:30] VITALS: BP 102/57; PULSE 67
[2025-04-13] MEDS: ACETAMINOPHEN 500 MG TABLET 1000 MG PO (21:59)
[2025-04-13 22:00] LABS: Add Urine Microscopic? YES; Appearance Urine Clear (Clear); Bacteria Urine Rare /hpf; Bilirubin Urine Negative (Negative); Blood Urine 3+ (Negative); Color Urine Yellow (Yellow); Glucose Urine UA Negative (Negative); Ketones Urine Negative (Negative); Leukocyte Esterase Ur Trace LEU/UL (Negative); Nitrate Urine Negative (Negative); Non Pathogenic Casts 0-2; Protein Urine Negative (Negative); Specific Grav Ur 1.013 (1.001-1.035); Squamous Epithelial Cell Urine Few /hpf (Few); WBC Urine 0-5 /hpf (0-3)
[2025-04-13 22:30] VITALS: BP 101/55; PULSE 75
[2025-04-13 23:00] VITALS: BP 99/53; PULSE 73
[2025-04-13 23:30] VITALS: BP 97/53; PULSE 70
--- NOTE | 2025-05-05 08:03 | PM.OBTRLD ---
OB - Triage/Final Diagnosis Visit Information Comments/Additional reasons for admission: I have assessed the risk for this patient, Saige Sanchez, and determined that she would benefit from observation care. Evaluation Laboratory results: Laboratory Tests 04/13/25 21:40 Urine Color Yellow Urine Appearance Clear Urine pH 6.0 Ur Specific [place] 1.013 Urine Protein Negative Urine Glucose (UA) Negative Urine Ketones Negative Ur Blood (Man) 3+ H Urine Nitrate Negative Urine Bilirubin Negative Urine Urobilinogen 1.0 Leukocyte Esterase Rfl Trace H Urine RBC 11-20 H Urine WBC 0-5 Ur Squamous Epith Cells Few Urine Bacteria Rare Urine Casts 0-2 Final Diagnosis (1) Abdominal pain: Code(s): R10.9 - Unspecified abdominal pain Status: Acute
== END 2025-04-13 23:48 | disposition home or self-care (01) ==
PROVIDERS: Admitting Provider Obstetrics & Gynecology; PCP Emergency Medicine; Visit Provider Obstetrics & Gynecology
DX: O26.892 Other specified pregnancy related conditions, second trimester (principal); R10.9 Unspecified abdominal pain; Z3A.24 24 weeks gestation of pregnancy
CPT/HCPCS: 76775; 81001; A9270; G0378; G0379

== ENCOUNTER 2025-07-20 07:53 | Outpatient (CLI) | payer OTHER, MEDICAID, SELFPAY ==
--- OUTSIDE RECORDS SUMMARY | 2025-07-20 08:16 | XMS_ITS | Clinical Summary ---
Author Organization [facility] Address [address] [place] [address] Phone Care Team Providers Care Internal Control Specialist Name Role Phone Provider, None Primary Care [...] 2 - PCV) 2010 Pap Smear 2012 Human Papillomavirus (HPV) Immunization (1 - 3-dose SCDM series) 2018 Cervical Cancer Screening (CCS) 2021 HPV/Cotest 2021 Influenza Immunization (#1) 2025 SARS-COV-2 Immunization ( - season) 2025 Respiratory Syncytial Virus (RSV) Immunization (Adult) (1 - 1-dose 75+ series) 2066 Meningococcal Immunization (ACWY) Aged Out No longer eligible based on patient's age to complete this topic Rotavirus Immunization Aged Out No lo nger eligible based on patient's age to complete this topic Insurance Care Teams Internal Control Specialist Relationship Specialty Start Date End Date Provider, None MD PCP - General 04/13/24
--- OUTSIDE RECORDS SUMMARY | 2025-07-20 08:16 | XMS_ITS | Clinical Summary ---
Author Organization [facility] Virtual Care Address [address] [place] [phone] Phone Care Team Providers Care Bag Tester Name Role Phone No, Physician Primary Care Provider [phone] Allergies No known active allergies Medications No known medications Active Problems Problem Noted Date Diagnosed Date Hematuria 02/08/2025 Proteinuria 02/08/2025 Cystitis 02/08/2025 Near syncope 02/08/2025 Tension headache 02/08/2025 Estimated Date of Delivery Comme nts Yes 07/29/2025 Based on Patient Reported Encounters Date Type Department Care Team Description 06/03/2025 8:16 PM CDT - 06/03/2025 9:15 PM CDT Hospital Encounter [facility] [address] [address] Thor Valverde MD Discharge Disposition: Discharge to home or self care 04/25/2025 12:57 PM CDT - 04/25/2025 5:13 PM CDT Hospital Encounter [facility] Child[facility] [address] [address] Thor Valverde MD Discharge Disposition: Discharge to home or self care from Last 3 Months Social History Tobacco Use Types Packs/Day Years Used Date Smoking Tobacco: Never Smokeless Tobacco: Never Tobacco Cessation:Counseling Given: Not Answered Social Connection and Isolation Panel Answer Date Recorded In a typical week, how many times do you talk on the phone with family, friends, or neighbors? More than three times a week 04/25/2025 How often do you get togethe r with friends or relatives? More than three times a week 04/25/2025 How often do you attend chur ch or christianity services? Never 04/25/2025 Do you belong to any clubs o r organizations such as hinduism groups, unions, fraternal or athletic groups, or school groups? No 04/25/2025 How often do you attend meet ings of the clubs or organizations you belong to? Never 04/25/2025 Are you , , di vorced, , never , or living with a partner? Never 04/25/2025 AUDIT-C Answer Date Recorded Q1: How often do you have a drink containing alcohol? Never 04/25/2025 Q2: How many drinks containi ng alcohol do you have on a typical day when you are drinking? Patient does not drink Q3: How often do you have si x or more drinks on one occasion? Never 04/25/2025 Overall Financial Resource Strain (CARDIA) Answe r Date Recorded How hard is it for you to pa y for the very basics like food, housing, medical care, and heating? Not hard at all 04/25/2025 PHQ-2 Answer Date Recorded PHQ-2 Total Score (If total score is 3 or more points, staff should administer the PHQ-9) 0 04/25/2025 [facility] - Occupational Stress Questionnaire Answer Date Recorded Do you feel stress - tense, restless, nervous, or anxious, or unable to sleep at night because your mind is troubled all the time - these days? Not at all 04/25/2025 Exercise Vital Sign Answer Date Recorde d On average, how many days pe r week do you engage in moderate to strenuous exercise (like a brisk walk)? 5 days 04/25/2025 On average, how many minutes do you engage in exercise at this level? 30 min 04/25/2025 Hunger Vital Sign Answer Date Recorded Within the past 12 months, y ou worried that your food would run out before you got the money to buy more. Never true 04/25/20 25 Within the past 12 months, t he food you bought just didn't last and you didn't have money to get more. Never true 04/25/2025 PRAPARE - Transportation Answer Date Re corded In the past 12 months, has l ack of transportation kept you from medical appointments or from getting medications? No 03/29 In the past 12 months, has l ack of transportation kept you from meetings, work, or from getting things needed for daily living? No 04/25/2025 Housing Stability Vital Sign Answer Brock e Recorded In the last 12 months, was t here a time when you were not able to pay the mortgage or rent on time? No 04/25/2025 Number of Times Moved in the Last Year Not on fi le 04/25/2025 At any time in the past 12 m [facility], were you homeless or living in a long term (including now)? No 04/25/2025 Personal Safety Answer Date Recorded Have you ever been in or are you currently in a harmful physical or emotional relationship or is someone making you feel afraid or unsafe? Denies 04/25/2025 Estimated Date of Delivery Comme nts Yes 07/29/2025 Based on Patient Reported Sex and Gender Information Value Date Recorded Sex Assigned at Not on file Legal Sex Female 4:46 PM CDT Gender Identity Not on file Sexual Orientation Not on file Obstetrics History Para Term AB IAB SAB Ectopic Multiple Livin g Live Births 4 3 3 Date Outcome GA Total Labor Labor/2nd/3rd Weight Sex Type Anes PTL Lily A1 A5 Name Clin 2008 Term 41w0 d C-Sect ion 2019 Term 39w0 d C-Sect ion 2021 Term 39w0 d F C-Sect ion Current Summary Episode Dates Number of Fetuses Estimated Date of Delivery 04/25/2025 - Present (07/20/2025) 07/29/2025 (set by Jessie Kelly, RN on 04/25/2025 based on Patient Reported) Dating Summary Based On MARK GA Diff Patient Reported 07/29/2025 Working Vitals Pregravid Weight Height TWG (As of 07/20/2025) Pregrav id BMI 154.9 cm (5' 1) Date GA Fund Present FHR Mvmt BP Weight Edema Alb Glu Ket Dil/ Eff/Sta 5 26w3d Inpatient data not displayed here. See encounter summary. 5 32w0d Inpatient data not displayed here. See encounter summary. Notes Progress Notes - Hospital En counter - 04/25/2025 - GA:26w3d 04/25/2025 - w3d - Faye Lazaro MD [facility] Obstetrics Triage Note Chief Complaint: Abdominal pain, back pain Estimated Date of Delivery: None noted. Provider: Dr. Sanders [place] Land Resource Specialist: TBD Subjective HPI: Saige Sanchez is a 34 y.o. female at 27w4d of gestation, dated by LMP consistent with 14 wk US with Estimated Date of Delivery: 07/29/25. who presents to [facility] L&D Triage for pelvic pressure, abdominal pain and contractions. Not taking vitamins. Today, patient reports painful sensation when has urge to urinate, denies dysuria and burning. Pain is start from lower back and radiates to the front. Symptoms have been present x 3 days. No increased frequency in urination, well hydrated. Reports has been feeling like her insides are about to fall whenever she sits down. Currently does not have any pain. Has not had similar symptoms prior to this. 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 Patient is . History of Abnormal Pap: None STD History: none No past medical history on file. Chronic hypertension: No Diabetes: No Asthma: Yes last exacerbation was years ago, not on medication. No past surgical history on file. Social History Tobacco Use Smoking status: Never Smokeless tobacco: Never Substance and Sexual Activity Drug use: None Sexual activity: None Alcohol Use: Not At Risk (04/25/2025) AUDIT-C Frequency of Alcohol Consumption: Never Average Number of Drinks: Patient does not drink Frequency of Binge Drinking: Never Support System: Good support system family history is not on file. Family history of bleeding or clotting disorders: No Family history of defects, genetic disorders, or developmental delay: No No Known Allergies HOME MEDICATIONS : acetaminophen (TYLENOL) 500 mg tablet Review of Systems: Review of systems per HPI and otherwise all systems are negative Objective Vitals: Temp: [36.7 C (98 F)-36.8 C (98.2 F)] 36.7 C (98 F) Pulse: [88] 88 Resp: [18] 18 BP: (107)/(70) 107/70 Physical Exam: General: NAD, mood appropriate Cardiovascular: Regular rate and rhythm Pulmonary: Clear to ausculation bilaterally Abdomen: Gravid, pelvic tenderness Extremities: Warm and well perfused Speculum Exam: deferred Cervix: 0 / 0 / -5 Monitoring: Uterine Activity: No contractions seen on toco Interpretation: Reactive Ultrasound: Not available Labs: Lab Results Component Value Date ABORH A Positive 12/05/2024 IDCOOMB Negative ABSC 12/05/2024 Rh positive/Ab negative/HIV nonreactive (Resulted on: 01/26/2025) /Rub reactive/RPR nonreactive/HepB nonreactive/HepC non reactive/GC/CT negative Assessment/Plan Active Problems: No Active Problems: There are no active problems currently on the Problem List. Please update the Problem List and refresh. Saige Sanchez is a 34 y.o. female at 27w4d of gestation, dated by LMP consistent with 14 wk US with Estimated Date of Delivery: 07/29/25. who presents to [facility] Triage for pelvic pressure, abdominal pain and contractions. - FHT: Category I reassuring. - TOCO: no contractions Possible cystitis Hematuria Patient presents with pelvic pressure and lower back pain. Most likely cystitis. Denies previous symptoms. However on chart review patient was seen at our ED on 02/08/2025 treated for possible UTI with cephalexin. Due to hematuria, epithelial cells and small amount of protein in the urine. Differentials include but are not limited to UTI, renal stones, dehydration, round ligament pain. -UA ordered -Pending result severe accordingly -May benefit from fluids -Renal US Faye Swift MD Family Medicine PGY-1 [facility] Family Medicine Residency Cosigned by Thor Valverde MD at 04/25/2025 10:48 PM CDT Associated attestation - Thor Valverde MD - 04/25/2025 10:48 PM CDT The resident/fellow saw and examined the patient, we discussed their findings, and I am in agreement with the plan based on the discussion with the resident/fellow. I did not personally examine the patient. Patient's renal ultrasound is unremarkable. UA remarkable for 3+ blood, will send for urine culture. Pt will follow up with primary Grants And Contracts Assistant. Last Filed Vital Signs Vital Sign Reading Time Taken Comments Blood Pressure 108/58 06/03/2025 9:09 PM CDT Pulse 77 06/03/2025 9:10 PM CDT Temperature 36.7 C (98 F) 04/25/2025 1:14 PM CDT Respiratory Rate 18 04/25/2025 12:28 PM CDT Oxygen Saturation 100% 06/03/2025 9:10 PM CDT Inhaled Oxygen Concentration - - Weight 80.3 kg (177 lb) 04/25/2025 12:28 PM CDT Height 154.9 cm (5' 1) 04/25/2025 12:28 PM CDT Body Mass Index 33.44 04/25/2025 12:28 PM CDT Plan of Treatment Upcoming Encounters Date Type Department Care Team (Late st Contact Info) Description 07/29/2025 Hospital Encounter [facility] [address] [place] [address] Thor Valverde MD [address] [place] [address] Health Maintenance Due Date Last Done Comments Hepatitis C Screening 1991 DTaP/Tdap/Td Vaccine (1 - Tdap) 2002 Varicella Vaccines (1 of 2 - 13+ 2-dose series) 2003 Hepatitis B Screening 2009 Regular Well Visit/Exam 18-64 2009 Pneumococcal vaccine <65 (1 of 2 - PCV) 2010 HPV Vaccines (1 - 3-dose SCDM series) 2018 Cervical Cancer Screening 12/19/2022 12/19/2021 Influenza Vaccine (#1) 2025 Depression Screening 04/25/2026 04/25/2025 Procedures Procedure Name Priority Date/Time Associated Diagnosis Comments US KIDNEY COMPLETE ED Urgent/IP Urgent 04/25/2025 4:20 PM CDT URINALYSIS, MICROSCOPIC ONLY Routine 04/25/2025 1:31 PM CDT URINALYSIS AND REFLEX TO MICROSCOPIC AND CULTURE Routine 04/25/2025 1:31 PM CDT from Last 3 Months Results * US Kidney Complete (04/25/2025 4:20 PM CDT) Anatomical Region Laterality Modality Kidney N/A Ultrasound 04/25/2025 4:52 PM CDT Narrative 04/25/2025 4:54 PM CDT EXAM DESCRIPTION: US KIDNEY COMPLETE REASON FOR STUDY: Back pain. TECHNIQUE: Ultrasound of the kidneys and urinary bladder was performed with grayscale imaging. COMPARISON: None. FINDINGS: RIGHT KIDNEY: The right kidney measures 11.2 cm in length. There is no hydronephrosis. There is normal cortical thickness and echogenicity. LEFT KIDNEY: The left kidney measures 10.5 cm in length. Prominent left renal pelvis and proximal and mid left ureter measuring up to 1.7 cm. The there is normal cortical thickness and echogenicity. URINARY BLADDER: There is fluid urinary bladder. Unfortunately the ureteral flow jets do not appear to have been assessed. OTHER: No other additional findings. IMPRESSION: 1. Prominent left renal pelvis and proximal and mid left ureter. Could consider a CT abdomen and pelvis for further assessment. Ureteral flow jets not assessed. 2. Normal renal size and echogenicity. THIS IS AN ELECTRONICALLY VERIFIED FINAL REPORT 04/25/2025 4:54 PM - Electronically signed by Jaiden Murdock M.D. CH: FERNANDO Report ID: [id number] Reading Location: [place] [address] Procedure Note Jaiden Murdock Jr., MD - 04/25/2025 EXAM DESCRIPTION: US KIDNEY COMPLETE REASON FOR STUDY: Back pain. TECHNIQUE: Ultrasound of the kidneys and urinary bladder was performedwith grayscale imaging. COMPARISON: None. FINDINGS: RIGHT KIDNEY: The right kidney measures 11.2 cm in length. There is no hydronephrosis. There is normal cortical thickness and echogenicity. LEFT KIDNEY: The left kidney measures 10.5 cm in length. Prominent left renal pelvis and proximal and mid left ureter measuring up to 1.7 cm. The there is normal cortical thickness and echogenicity. URINARY BLADDER: There is fluid urinary bladder. Unfortunately theureteral flow jets do not appear to have been assessed. OTHER: No other additional findings. IMPRESSION: 1. Prominent left renal pelvis and proximal and mid left ureter. Could consider a CT abdomen and pelvis for further assessment. Ureteral flowjets not assessed. 2. Normal renal size and echogenicity. THIS IS AN ELECTRONICALLY VERIFIED FINAL REPORT 04/25/2025 4:54 PM - Electronically signed by Jaiden Murdock M.D. CH: FERNANDO Report ID: [id number] Reading Location: [place] [address] us Thor Valverde MD IMG US PROCEDURES Ade l Result * (ABNORMAL) Urinalysis reflex to microscopic and culture Urine, clean voided (04/25/2025 1:31 PM CDT) Color, ur Yellow Yellow Clarity, ur Clear Clear [facility] ([place]) Specific gravity, ur 1.021 1.003 - 1.030 [facility] ([place]) pH, urine 7.5 [facility] ([place]) Comment: Interpretive Data U rine pH is affected by diet, medications, systemic acid-base disturbances, and renal tubular function. pH may affect urinary stone formation. For example, urine pH below 6.0 may help reduce the tendency for calcium phosphate stones and pH greater than 6.0 may reduce the tendency for uric acid stone formation. Source: [facility] Current Interpretive Data was last revised on 2017 Protein, ur ql Trace Negative [facility] ([place]) Glucose, ur [...] UA will be performed. [facility] ([place]) Urine, clean voided 04/25/2025 1:31 PM CDT 04/25/2025 1:40 PM CDT us Thor Valverde MD LAB MICROBIOLOGY - GEN ERAL ORDERABLES Final Result [facility] ([place]) [address] [facility] Department [place] [address] * (ABNORMAL) Urinalysis, microscopic only (04/25/2025 1:31 PM CDT) WBC, ur 0-5 0 - 5 /HPF RBC, ur 21-50(A) 0 - 2 /HPF [facility] ([place]) Epithelial cells, squamous, ur 6-10(A) 0 - 5 /HPF [facility] ([place]) Bacteria, ur Trace(A) [facility] ([place]) Mucous, ur Present(A) [facility] ([place]) Culture Reflex Comment Reflex conditions for urine culture (WBC >10) not met. [facility] ([place]) Urine, clean voided 04/25/2025 1:31 PM CDT 04/25/2025 1:40 PM CDT us Thor Valverde MD LAB URINE ORDERABLES F inal Result [facility] ([place]) 1 [facility] Department [place] [address] from Last 3 Months Insurance IDPA [facility] [employer] PLAN [place] Care Teams Bag Tester Relationship Specialty Start Date End Date No, Physician PCP - General 12/05/24
--- OUTSIDE RECORDS SUMMARY | 2025-07-20 08:16 | XMS_ITS | Patient Health Record ---
Author Organization [place] [facility] Address [address] [place] [address] Support Name Relationship Address Phone Satya estelaallegra Emergency Contact Unknown [phone] Saige Sanchez Guarantor Unknown Unavailabl e Allergies [...]
[2025-07-20 08:38] LABS: Hematocrit 31.0 % (37.0-47.0); Hemoglobin 10.5 g/dL (12.0-15.0); Immature Granulocyte Percent A 0.5 % (0-0.5); Lymphocytes Absolute Auto 1.59 K/mm3 (0.9-3.2); Mean Corpuscular HGB Conc 33.9 g/dl (32-36); Mean Corpuscular Hemoglobin 31.8 pg (26-34); Mean Corpuscular Volume 93.9 fl (80-100); Nucleated Red Blood Cells Absolute Auto 0.000 K/mm3 (0.0-0.012); Nucleated Red Blood Cells Perc 0.0 % (0.0-0.2); Platelet Count Result 219 k/mm3 (150-375); Red Blood Count 3.30 M/mm3 (4.2-5.4); White Blood Count 8.4 K/mm3 (4.5-10.0)
[2025-07-20 09:13] LABS: Alanine Aminotransferase 13 U/L (6-35); Albumin Level 3.3 g/dL (3.5-5.1); Alkaline Phosphatase 104 U/L (38-126); Anion Gap 8 mmol/L (4-12); Aspartate Amino Transferase 19 U/L (14-36); Bilirubin,Total 0.3 mg/dL (0.2-1.3); Blood Urea Nitrogen 8 mg/dL (7-17); Calcium 8.3 mg/dL (8.4-10.2); Carbon Dioxide 20 mmol/L (22-30); Chloride 107 mmol/L (98-107); Estimated Glomerular Filt Rate > 60; Glucose 104 mg/dL (65-110); Potassium 3.9 mmol/L (3.4-5.0); Sodium 135 mmol/L (137-145); Total Protein 6.3 g/dL (6.3-8.2)
[2025-07-20 09:28] LABS: Syphilis IgG/IgM Antibody Non-Reactive (Nonreactive)
== END 2025-07-20 07:54 | disposition home or self-care (01) ==
PROVIDERS: PCP Emergency Medicine; Visit Provider Obstetrics & Gynecology
DX: Z34.93 Encounter for supervision of normal pregnancy, unspecified, third trimester (principal); Z3A.00 Weeks of gestation of pregnancy not specified
CPT/HCPCS: 36415; 80053; 85025; 86593; 86850; 86900; 86901

== ENCOUNTER 2025-07-21 05:45 | Inpatient (IN) | payer OTHER, MEDICAID, SELFPAY ==
--- OUTSIDE RECORDS SUMMARY | 2022-01-25 09:53 | XMS_ITS | Continuity of Care Document ---
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 [address], [place], [id number] , [place]. tel: [phone] [facility], [address], [place], [id number] , [place] tel: [phone] Behavorial Health Post-traumatic stress disorder 1 CapAMINA finnC Lorna. [address], [place], [id number] , [place]. tel: [phone] PSYTX PT&/FAMILY 60 MINUTES [facility], [address] [place] [address], [id number] , [place] tel: [phone] Behavorial Health Post-traumatic stress disorder 1 ROBERT Borrero Lorna. [address], [place], [id number] , [place]. tel: [phone] PSYTX PT&/FAMILY 60 MINUTES [facility], [address] [place] [address], [id number] , [place] tel: [phone] Behavorial [facility] Post-traumatic stress disorder 1 AMINA BorreroC Lorna. [address] [place] [address], [id number] , [place]. tel: [phone] PSYTX PT&/FAMILY 45 MINUTES [facility], [address] [place] [address], [id number] , [place] tel: [phone] Behav[facility] Post-traumatic stress disorder 0 Capjacquelineini, AMINAC Lorna. [address], [place], [id number] , [place]. tel: [phone] PSYTX PT&/FAMILY 60 MINUTES [facility], [address] [place] [address], [id number] , [place] tel: [phone] [facility] Post-traumatic stress disorder 0 Capucini, AMINAC Lorna. [address] [place] [address], [id number] , [place]. tel: [phone] PSYTX PT&/FAMILY 60 MINUTES [facility], [address], [place], [id number] , [place] tel: [phone] Behav[facility] Post-traumatic stress disorder 0- 0 CapROBERT finn Lorna. [address], [place], [id number] , [place]. tel: [phone] PSYTX PT&/FAMILY 45 MINUTES [facility], [address], [place], [id number] , [place] tel: [phone] Behav[facility] Post-traumatic stress disorder 0 CapucROBERT rodgers Lorna. [address], [place], [id number] , [place]. tel: [phone] [facility], [address] [place] [address], [id number] , [place] tel: [phone] [facility] No Information 0 Pavlock DO Max. [address], [place], [id number] , [place]. tel: [phone] OFFICE/OUTPA TIENT VISIT, EST [facility], [address] [place] [address], [id number] , [place] tel: [phone] [facility] F/U (chief complaint) depression (chief complaint) depression 0 Pavlock DO Max. [address], [place], [id number] , [place]. tel: [phone] PSYTX PT&/FAMILY 45 MINUTES [facility], [address] [place] [address], [id number] , [place] tel: [phone] Behavorial Health Post-traumatic stress disorder 0 ROBERT Borrero Lorna. [address] [place] [address], [id number] , [place]. tel: [phone] PSYTX PT&/FAMILY 60 MINUTES [facility], [address] [place] [address], [id number] , [place] tel: [phone] Behav[facility] Post-traumatic stress disorder 0 Capucini, LPCC Lorna. [address] [place] [address], [id number] , [place]. tel: [phone] PSYTX PT&/FAMILY 60 MINUTES [facility], [address] [place] [address], [id number] , tel: [phone] Behavorial Health Post-traumatic stress disorder 0 Capucini, LPCC Lorna. [address] [place] [address], [id number] , [place]. tel: [phone] PSYTX PT&/FAMILY 60 MINUTES [facility], [address] [place] [address], [id number] , [place] tel: [phone] [facility] Post-traumatic stress disorder 0 Capucvishal, LPCC Lorna. [address] [place] [address], [id number] , [place]. tel: [phone] PSYCH DIAGNOSTIC EVALUATION [facility], [address] [place] [address], [id number] , tel: [phone] Behav[facility] Post-traumatic stress disorder 0 Capucini, LumiantC Lorna. [address] [place] [address], [id number] , [place]. tel: [phone] OFFICE/OUTPA TIENT VISIT, [facility], [address] [place] [address], [id number] , tel: [phone] [facility] Est Care (chief complaint) Anxiety (chief complaint) Body mass index [BMI] 31.0-31.9, adultPTSD (post-traumatic stress disorder) depressionPostpartu m depression 0 Pavlock DO Max. [address] [place] [address], [id number] , [place]. tel:[phone] Family History Family Member Type Diagnosis Age At Onset No Information Payers Payer name Insurance type Covered green party ID Edmund fields(s) Medicaid [facility] [id number] Social History Type Description Quantity Date Captured [...] anything. Continues to see Renetta Borrero weekly. Tea Mccoy RN Anxiety This is an initi [...] conselors. Pt states she is orginally from [place] and just moved up here. No other issues or concernsTGrodi VEGETABLE TIER Functional Status Date Functional Assessmen t No [...]
[2025-07-21] VITALS (67 sets, daily range): BP systolic 79–127; BP diastolic 43–77; PULSE 62–115; RESP 16–21; TEMP 36.1–37.4; O2SAT 88–100; BMI 35.8
--- OUTSIDE RECORDS SUMMARY | 2025-07-21 01:54 | XMS_ITS | Clinical Summary ---
Author Organization [facility] Virtual Care Address [address] [place] [phone] Phone Care Team Providers Care Co Founder And Cto Name Role Phone No, Physician Primary Care Provider [phone] Allergies No known active allergies Medications No known medications Active Problems Problem Noted Date Diagnosed Date Hematuria 02/08/2025 Proteinuria 02/08/2025 Cystitis 02/08/2025 Near syncope 02/08/2025 Tension headache 02/08/2025 Estimated Date of Delivery Comme nts Yes 07/29/2025 Based on Patient Reported Encounters Date Type Department Care Team Description 06/03/2025 8:16 PM CDT - 06/03/2025 9:15 PM CDT Hospital Encounter [facility] Health and Childbirth [address] [address] Thor Valverde MD Discharge Disposition: Discharge to home or self care 04/25/2025 12:57 PM CDT - 04/25/2025 5:13 PM CDT Hospital Encounter [facility] Health and Childbirth [address] [address] Thor Valverde MD Discharge Disposition: Discharge to [...] often do you attend chur ch or jehovah's witness services? Never 04/25/2025 Do you belong to any clubs o r organizations such as latter-day groups, unions, fraternal or athletic groups, or [...] staff should administer the PHQ-9) 0 04/25/2025 [facility]at ional Health - [...] any time in the past 12 m [facility], were you homeless or living in a custodial (including now)? No 04/25/2025 Personal Safety Answer [...] Estimated Date of Delivery 04/25/2025 - Present (07/21/2025) 07/29/2025 (set by Jessie Kelly, RN on 04/25/2025 based on Patient Reported) Dating Summary Based On MARK GA Diff Patient Reported 07/29/2025 Working Vitals Pregravid Weight Height TWG (As of 07/21/2025) Pregrav id BMI 154.9 cm (5' 1) Date GA Fund Present FHR Mvmt BP Weight Edema Alb Glu Ket Dil/ Eff/Sta 5 26w3d Inpatient data not displayed here. See encounter summary. 5 32w0d Inpatient data not displayed here. See encounter summary. Notes Progress Notes - Hospital En counter - 04/25/2025 - GA:26w3d 04/25/2025 - w3d - Faye Lazaro MD [facility] Obstetrics Triage Note Chief Complaint: Abdominal pain, back pain Estimated Date of Delivery: None noted. Provider: Dr. Sanders [place] Application Development Director: TBD Subjective HPI: Saige Sanchez is a 34 y.o. female at 27w4d of gestation, dated by LMP consistent with 14 wk US with Estimated Date of Delivery: 07/29/25. 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 Patient is . [...] Date of Delivery: 07/29/25. who presents to [facility] Triage for pelvic pressure, abdominal pain and [...] US Faye Swift MD Family Medicine PGY-1 [facility] Family Medicine Residency Cosigned by Thor [...] culture. Pt will follow up with primary Valver. Last Filed Vital Signs Vital Sign Reading [...] st Contact Info) Description 07/29/2025 Hospital Encounter [facility] [address] [place] [address] Thor Valverde MD [address] [facility] [address] [place] [address] Health Maintenance Due Date Last Done Comments [...] Jaiden Murdock M.D. CH: FERNANDO Report ID: [id number] Reading Location: [place] [address] Procedure Note Jaiden Murdock Jr., MD - [...] Jaiden Murdock M.D. CH: FERNANDO Report ID: [id number] Reading Location: [place] [address] us Thor Valverde MD IMG US PROCEDURES Ade l Result * (ABNORMAL) Urinalysis reflex to microscopic and culture Urine, clean voided (04/25/2025 1:31 PM CDT) Color, ur Yellow Yellow Clarity, ur Clear Clear [facility] ([place]) Specific gravity, ur 1.021 1.003 - 1.030 [...] tendency for uric acid stone formation. Source: [facility] Current Interpretive Data was last revised on [...] MICROBIOLOGY - GEN ERAL ORDERABLES Final Result [facility] ([place]) 1 [facility] Department [place] [address] * (ABNORMAL) Urinalysis, microscopic only (04/25/2025 1:31 [...] URINE ORDERABLES F inal Result [facility] ([place]) 1 [facility] Department [place] [address] from Last 3 Months Insurance IDPA [facility] CORE HE[employer] PLAN [place] Care Teams Co Founder And Cto Relationship Specialty Start Date End Date No, Physician PCP - General 12/05/24
--- OUTSIDE RECORDS SUMMARY | 2025-07-21 01:54 | XMS_ITS | Patient Health Record ---
Author Organization [place] [facility] Address [address] [place] [address] Support Name Relationship Address Phone Satya estelaallegra Emergency Contact Unknown Saige Sanchez Guarantor Unknown Unavailabl e Allergies [...]
--- OUTSIDE RECORDS SUMMARY | 2025-07-21 01:54 | XMS_ITS | Clinical Summary ---
Author Organization [facility] Address [address] [place] [address] Phone Care Team Providers Care Industrial Designer Name Role Phone Provider, None Primary Care [...] to complete this topic Insurance Care Teams Industrial Designer Relationship Specialty Start Date End Date Provider, None PA PCP - General 04/13/24
[2025-07-21] MEDS: ACETAMINOPHEN 500 MG TABLET 1000 MG PO ×3 (06:26→19:45)
[2025-07-21] MEDS: LACTATED RINGERS 1,000 ML 125 ML IV CONT (06:40)
--- NOTE | 2025-07-21 06:51 | LDADM ---
This patient, Saige Sanchez, was admitted to Labor/Delivery/Recovery 120 on 07/21/25 at 05:45. Plans for labor, pain management and were discussed with patient. Patient/family oriented to hospital policies and general routines including ID bracelet, bed and alarms, visiting hours, pain management, procedures, bathroom and other care routines, personal items, smoking policy, room service/diet and guest tray routines, infant security routines, and visiting hours. Patient/Family are encouraged to report perceived risks to care and to ask questions if they do not understand what they are told or what they should do. See OBIX for further documentation.
--- NOTE | 2025-07-21 07:07 | PM.IMHP ---
H&P: HPI History of Present Illness Date/Time: 07/21/25 07:07 Chief Complaint: Term Narrative: 34-year-old multiparous female at term with previous delivery. We have agreed for repeat delivery. She understands risks, benefits, and alternative. She has completed informed consent process is ready to proceed. The patient understands the details of the procedure. The procedure has been explained in detail. She understands the risks. She understands that injuries may occur that result in hospitalization, more surgery, and severe illness. She understands risk of hemorrhage and infection. She denies any chest pain or shortness of breath. She denies any nausea, vomiting, fever, chills. Review of Systems Review of Systems: All systems reviewed & are unremarkable except as noted in HPI and below Constitutional: Constitutional: Denies chills, Denies fatigue, Denies fever(s) and Denies weakness Eyes: Eyes: Denies blurry vision, Denies change in vision, Denies loss of peripheral vision, Denies loss of vision, Denies other visual disturbances and Denies eye pain ENT: Denies vertigo, Denies dizziness, Denies hearing loss, Denies mouth pain, Denies nasal obstruction, Denies neck mass and Denies neck pain Cardiovascular: Cardiovascular: Denies chest pain, Denies diaphoresis, Denies syncope, Denies leg edema and Denies dyspnea Respiratory: Respiratory: Denies chest congestion, Denies cough, Denies hemoptysis, Denies dyspnea and Denies wheezing Gastrointestinal: Gastrointestinal: Denies abdominal pain, Denies constipation, Denies diarrhea, Denies nausea and Denies vomiting Genitourinary: Genitourinary: Denies hematuria, Denies change in libido, Denies nocturia, Denies genital lesions, Denies flank pain and Denies urinary urgency Musculoskeletal: Musculoskeletal: Denies abnormal gait, Denies back pain, Denies myalgias, Denies arthralgias, Denies joint swelling, Denies muscle weakness and Denies neck pain Integumentary/Breasts: Skin/Breast: Denies swelling, Denies breast pain, Denies breast mass, Denies dry skin, Denies nipple discharge, Denies unusual bruising and Denies jaundice Neurologic: Denies Neuro-related abnormal movements, Denies Abnormal speech present, Denies abnormal gait, Denies behavioral changes, Denies confusion, Denies vertigo, Denies dizziness, Denies syncope, Denies loss of vision, Denies memory loss, Denies convulsions and Denies weakness Psychiatric: Psychiatric: Denies abnormal sleep pattern, Denies behavioral changes, Denies change in libido, Denies confusion, Denies depression, Denies anhedonia and Denies memory loss Endocrine: Endocrine: Reports no additional endocrine complaints, Denies change in libido and Denies fatigue Hematologic/Lymphatic: Hematologic/Lymphatic: Reports no additional hematologic/lymphatic complaints Allergic/Immunologic: Allergic/Immunologic: Reports no additional allergic/immunologic complaints and Denies wheezing [facility] Family History Family History (Updated 07/20/25 @ 09:05 by Caprice Sabillon RN) Other No pertinent family history Social History Social History Smoking status: Former smoker Tobacco type: cigarettes Substance use: never Do You Feel Safe in your Home?: Yes Lack of Transportation: No Lack of Food: Never True Current Housing: I Have Housing Concerned About Future Housing: No Difficulty Paying Gas/Electric Bills: No Difficulty Paying for Meds: No Currently Unemployed: No Education: Trade/Vocational Certificate Difficulty w/ Childcare or Family Care: No Meds Home Medications and Allergies Home Medications ?Medication ?Instructions ?Recorded ?Confirmed ?Type No Home Medications 04/13/25 07/20/25 History Allergies Allergy/AdvReac Type Severity Reaction Status Date / Time No Known Allergies Allergy Verified 07/20/25 09:42 Vital Signs Vital Signs - 24 hr 07/21/25 06:07 07/21/25 06:12 07/21/25 06:17 Pulse Rate Blood Pressure Pulse Oximetry 95 95 95 Oxygen Delivery 07/21/25 06:22 07/21/25 06:27 07/21/25 06:32 Pulse Rate Blood Pressure Pulse Oximetry 96 96 96 Oxygen Delivery 07/21/25 06:37 07/21/25 06:42 07/21/25 06:47 Pulse Rate Blood Pressure Pulse Oximetry 96 93 97 Oxygen Delivery 07/21/25 06:51 07/21/25 06:52 07/21/25 06:57 Pulse Rate Blood Pressure Pulse Oximetry 96 97 Oxygen Delivery Room Air 07/21/25 07:01 07/21/25 07:02 Pulse Rate 71 Blood Pressure 113/76 Pulse Oximetry 94 Oxygen Delivery Exam Const: General: cooperative, healthy appearing, comfortable and no acute distress Orientation/consciousness: oriented to person, oriented to place and oriented to time HENMT: Head: normal to inspection Ears: external ears normal Face/Nose/Sinus: Normal external nose present and normal facial exam Face and sinus: normal facial exam Eyes: General: appearance normal, both eyes and all related structures Neck: Neck: normal visual inspection, trachea midline and supple Resp: Auscultation: clear to auscultation bilaterally, no crackles, no rales, no rhonchi and no wheezes Cardio: Rate: regular rate Rhythm: regular rhythm Heart sounds: no click, no murmurs and no rubs GI: GI Palp: No abdominal tenderness, No Soft to palpation, No Tenderness to palpation present (GI) and No Palpable mass present Auscultation: normal bowel sounds Skin: General skin exam: normal color and no rashes or lesions noted Neuro: General: oriented to person, oriented to place and oriented to time Extrem: General: normal to inspection, no joint enlargement, no clubbing, cyanosis or edema, no pedal edema and no calf tenderness Psych: Appearance: grossly normal Mental Status: mental status grossly normal Speech and movement: Normal speech and movement present Assessment and Plan Assessment and plan (1) Previous section: Code(s): Z98.891 - History of uterine scar from previous surgery Status: Acute Plan 34-year-old multiparous female at term with previous delivery. We have agreed for repeat delivery. She understands risks, benefits, and alternative. She has completed informed consent process is ready to proceed.
--- NOTE | 2025-07-21 07:09 | P.PNAN_ITS ---
Anes - Initial Pre Proc Eval Procedure: Operation Date: 07/21/25 07:30 Proposed Procedures p Repeat Section - Don Sanders MD Date/Time: 07/21/25 07:09 Surgeon: Don Sanders MD Pre Op Diagnosis: Patient Data Age: 34 Gender: F Height: 1.55 m Weight: 86 kg Last Vital Signs Pulse 71 07/21/25 07:01 BP 113/76 07/21/25 07:01 Pulse Ox 95 07/21/25 07:07 O2 Del Method Room Air 07/21/25 06:51 Allergies Allergy/AdvReac Type Severity Reaction Status Date / Time No Known Allergies Allergy Verified 07/20/25 09:42 Home Medications ?Medication ?Instructions ?Recorded ?Confirmed ?Type No Home Medications 04/13/25 07/20/25 H istory Patient hx anesthesia problems: none Family hx anesthesia problems: none Results Review: All pre-operative results and documents have been reviewed as part of the pre- operative evaluation. [facility] Surgical History Surgical History (Updated 07/21/25 @ 07:09 by Kunal Ziegler MD) Previous section Family History Family History Other No pertinent family history Social History Social History Smoking status: Former smoker Tobacco type: cigarettes Substance use: never Do You Feel Safe in your Home?: Yes Lack of Transportation: No Lack of Food: Never True Current Housing: I Have Housing Concerned About Future Housing: No Difficulty Paying Gas/Electric Bills: No Difficulty Paying for Meds: No Currently Unemployed: No Education: Trade/Vocational Certificate Difficulty w/ Childcare or Family Care: No Anes - Eval Final PreProcedure Day of Procedure 07/21/25 07:09 Patient weight: obese Heart: regular rate and rhythm Lungs: clear to auscultation Airway: Mallampati scale class II Neurological: alert and oriented Last oral intake: >/= 8 hours ASA classification: II Emergent: no Anesthetic plan: proceed Anesthesia type and monitoring: regional spinal and standard monitoring Results Review: All pre-operative results and documents have been reviewed as part of the pre-op erative evaluation. Informed Consent: The patient's anesthetic plan and its attendant risks and benefits were discussed with the patient/family/POA. Questions were solicited and answers provided to the satisfaction of the patient/family/POA.
--- NOTE | 2025-07-21 07:09 | WPDHPUPDATE1 ---
History and Physical Update Update Date/Time: 07/21/25 07:09 History and Physical has been reviewed, including an updated exam of the patient. There are NO changes in the patient's condition. Risks, benefits, and alternatives have been discussed and questions answered. Patient agrees to proceed with procedure.
[2025-07-21] MEDS: ONDANSETRON INJ 4 MG/2 ML VIAL IV PUSH (07:38)
[2025-07-21] MEDS: FAMOTIDINE 20 MG/2 ML VIAL IV PUSH (07:38)
[2025-07-21] MEDS: ceFAZolin 2 GM in SODIUM CHLORIDE 0.9% IV 50 ML 100 ML IVPB (07:41)
--- NOTE | 2025-07-21 08:53 | P.PCNOB_ITS ---
OB - Delivery Note Procedure Delivery date: 07/21/25 Pre-op diagnosis: Previous Delivery Post-op Diagnosis: Same Procedure Performed: Repeat Surgeon: Don Sanders MD Anesthesia type: Spinal Description of Procedure/Findings: The patient was taken the operating room.? She was prepped and draped in dorsal supine position with a leftward tilt.? This was done after spinal anesthetic was applied.? A low-transverse skin incision was made and carried down till of the fascia with the knife.? The fascial incision was made with the knife.? The fascial incision was extended laterally with Gaytan scissors.? The fascia was tented upward superiorly and inferiorly the rectus muscles were dissected off bluntly.? The rectus muscles were the midline.?Tenacious scar tissue at the midline where the rectus muscles were . it required modification at the time of the delivery. Scar tissue and fascia had to be broken down and transected with scissors. The preperitoneal fat and peritoneum were dissected open bluntly at the superior aspect of the rectus muscles.? The peritoneal incision was extended superior and inferior with good position of bladder.? The uterine incision was made with a scalpel down to the level of the amniotic cavity.? The amniotic cavity was entered bluntly.? The infant was delivered.? The cord was clamped and cut and the infant was handed off to waiting pediatric staff.? Cord bloods were obtained.? The placenta was removed manually.? The uterus was exteriorized.? The uterus was cleared of all clots, debris and membranes.? The uterus was closed in 0 Vicryl running lock fashion.? An imbricating over a was placed along the incision line as well.? The uterus w as returned to the abdomen.? The gutters were cleared of all clots and debris.? The fascia was closed with 0 Vicryl running fashion.? The subcutaneous tissue was irrigated pinpoint bleeders were cauterized.? The skin was closed with subcuticular absorbable lopez.? The skin incision line was covered with glue.? The patient tolerated the procedure well.? She has taken recovery room in stable condition.? Sponge lap and needle counts were correct x2.?
[2025-07-21] MEDS: OXYTOCIN 30 UNITS/NS 500 ML 30 UNITS/500 ML BAG 125 UNITS IV CONT (09:19)
--- NOTE | 2025-07-21 11:04 | PC.NURSE ---
This patient, Saige Sanchez, was received from labor and delivery per stretcher on 07/21/25 at 1104. Patient/family oriented to unit policies and routines
[2025-07-21] MEDS: KETOROLAC 15 MG/ML VIAL (*BKC) IV PUSH ×2 (13:50→19:45)
[2025-07-21] MEDS: DEXTROSE 5%/0.45% SOD CHL 1,000 ML 125 ML IV CONT (13:50)
[2025-07-22 04:39] VITALS: BP 122/76; PULSE 89; RESP 16; TEMP 36.1; O2SAT 97
[2025-07-22 05:26] LABS: Hematocrit 24.2 % (37.0-47.0); Hemoglobin 8.0 g/dL (12.0-15.0); Immature Granulocyte Percent A 0.4 % (0-0.5); Lymphocytes Absolute Auto 1.43 K/mm3 (0.9-3.2); Mean Corpuscular HGB Conc 33.1 g/dl (32-36); Mean Corpuscular Hemoglobin 31.9 pg (26-34); Mean Corpuscular Volume 96.4 fl (80-100); Nucleated Red Blood Cells Absolute Auto 0.000 K/mm3 (0.0-0.012); Nucleated Red Blood Cells Perc 0.0 % (0.0-0.2); Platelet Count Result 168 k/mm3 (150-375); Red Blood Count 2.51 M/mm3 (4.2-5.4); White Blood Count 8.2 K/mm3 (4.5-10.0)
[2025-07-22 07:30] VITALS: BP 116/69; PULSE 76; RESP 18; TEMP 36.9; O2SAT 98
[2025-07-22] MEDS: IBUPROFEN 600 MG TABLET PO ×3 (07:38→20:00)
[2025-07-22] MEDS: ACETAMINOPHEN 500 MG TABLET 1000 MG PO ×3 (07:38→20:00)
[2025-07-22] MEDS: DOCUSATE SODIUM 100 MG CAPSULE PO ×2 (07:38→17:21)
--- NOTE | 2025-07-22 08:03 | P.PNOB_ITS ---
OB - PN: Subj Subjective Date/time seen: 07/22/25 08:03 Interval history: post op day 1 doing well urinating w/o difficulty passing flatus up and walking around OB - PN: Obj Data Labs 07/22/25 04:50 Labs: Laboratory Results - last 24 hr 07/22/25 04:50 WBC 8.2 RBC 2.51 L Hgb 8.0 L Hct 24.2 L MCV 96.4 MCH 31.9 MCHC 33.1 RDW 13.7 Plt Count 168 MPV 10.3 Immature Gran % (Auto) 0.4 Neut % (Auto) 70.2 Lymph % (Auto) 17.4 L Lawrence % (Auto) 10.1 H Eos % (Auto) 1.7 Baso % (Auto) 0.2 Lymph # (Auto) 1.43 Lawrence # (Auto) 0.8 H Eos # (Auto) 0.1 Baso # (Auto) 0.0 Abs Immat Gran (auto) 0.03 Absolute Neuts (auto) 5.8 Absolute Nucleated RBC 0.000 Nucleated RBC % 0.0 OB - PN A/P Plan day: 1 Plan: routine care Time Spent With Patient Time: Total time spent is greater than 50% in coordination of care (as documented) at patient's floor/unit and/or counseling patient: Review of Systems 2 Review of Systems: All systems reviewed & are unremarkable except as noted in HPI and below Exam 2 Const: General: cooperative, healthy appearing and comfortable Chest: Chest palpation & inspection: normal inspection of the chest Resp: Effort & Inspection: normal respiratory effort Cardio: Rate: regular rate GI: Other: incision CDI Back/Spine/Pelvis: Back: no CVA tenderness
[2025-07-22] MEDS: MULTIVIT/MIN/PREN/FOL AC/IRON TABLET 1 TAB PO (08:50)
[2025-07-22] MEDS: LIDOCAINE 5% PATCH 1 PATCH TRANSDERM (09:57)
--- NOTE | 2025-07-22 10:10 | WPDANLDNPN2 ---
Anes-Prog Note L&D-Neuraxial Date/Time: 07/22/25 10:10 Patient feedback: Patient satisfied with post-operative pain management.
--- NOTE | 2025-07-22 10:10 | WPDANLDPN2 ---
Anes-Prog Note L&D Date/Time: 07/22/25 10:10 Neuro status: Neuro function grossly intact. Cardiovascular status: normal Respiratory status: normal Airway patency: baseline Mental status: baseline Post-Op hydration status: normal Vital Signs: Last Vital Signs Temp 36.9 C 07/22/25 07:30 Pulse 76 07/22/25 07:30 Resp 18 07/22/25 07:30 BP 116/69 07/22/25 07:30 Pulse Ox 98 07/22/25 07:30 O2 Del Method Room Air 07/21/25 19:30 Pain score (VAS): 0 I/O: Intake & Output 07/21/25 07/22/25 07/22/25 23:59 07:59 15:59 Intake Total 1500 790 Output Total 1250 250 Balance 250 540 Post-procedural complaints: none Patient feedback: Patient satisfied with anesthetic care.
[2025-07-22 20:00] VITALS: BP 133/88; PULSE 82; RESP 18; TEMP 36.3; O2SAT 100
[2025-07-23] MEDS: ACETAMINOPHEN 500 MG TABLET 1000 MG PO ×2 (02:00→09:28)
[2025-07-23] MEDS: IBUPROFEN 600 MG TABLET PO ×2 (02:00→09:28)
--- NOTE | 2025-07-23 07:44 | P.PNOB_ITS ---
OB - PN: Subj Subjective Date/time seen: 07/23/25 07:44 Interval history: post op day 2 Desires discharge home doing well urinating w/o difficulty passing flatus up and walking around OB - PN: Obj Data Labs 07/22/25 04:50 OB - PN A/P Plan day: 2 Plan: routine care and discharge home Time Spent With Patient Time: Total time spent is greater than 50% in coordination of care (as documented) at patient's floor/unit and/or counseling patient: Review of Systems 2 Review of Systems: All systems reviewed & are unremarkable except as noted in HPI and below Exam 2 Const: General: cooperative Chest: Chest palpation & inspection: normal inspection of the chest Resp: Effort & Inspection: normal respiratory effort Cardio: Rate: regular rate GI: Other: Incision CDI Extrem: Right lower extremity: normal to inspection Left lower extremity: n ormal to inspection
--- NOTE | 2025-07-23 07:49 | PM.OBDSVD ---
DS: Admitting Diagnosis Discharge Date 07/23/2025 Admitting Diagnosis repeat DS: Discharge Diagnosis Discharge Diagnosis (1) Delivery by section: Status: Acute OB - DS: Summary OB Procedures : None OB Procedures Intrapartum: OB Procedures: : None Peripartum Data Procedures: Procedures Operation Date: 07/21/25 07:30 Actual Procedure Side Surgeon p Repeat Section Not Applicable Don Sanders MD Time Spent with Patient Time attestation: Total time spent providing and/or coordinating discharge services: Discharge Plan Discharge Attending physician on discharge: Don Sanders Discharging Clinician: Cathy Cutler Patient Disposition: Home Activity: pelvic rest Diet: regular Patient Instructions: Antibiotic Form Patient Language: Yakut Stand Alone Forms: General Discharge Information Follow-up/Referrals: Don Sanders MD [Physician, [employer] LINE UP PERSON] - 1 Week Discharge Medications: New oxycodone 5 mg Tablet 5 mg PO Q4H PRN (Reason: Pain Rated 4-6) 7 Days Qty: 15 0RF lidocaine [Lidoderm] 5 % Adhesive Patch,Medicated 1 patch transdermal DAILY PRN (Reason: Incision pain) Qty: 5 0RF polysaccharide iron complex 150 mg iron Capsule 150 mg PO BIDWM Qty: 60 0RF No Action No Home Medications Date of admission: 07/21/25 05:45 Primary Care Provider: UNKNOWN,DOCTOR Admitting Provider: Don Sanders Attending physician on admission: Don Sanders Condition: Stable
[2025-07-23 07:50] VITALS: BP 119/71; PULSE 64; RESP 18; TEMP 36.4; O2SAT 98
[2025-07-23] MEDS: MULTIVIT/MIN/PREN/FOL AC/IRON TABLET 1 TAB PO (09:29)
[2025-07-23] MEDS: SIMETHICONE 80 MG TAB.CHEW PO (09:29)
[2025-07-23] MEDS: DOCUSATE SODIUM 100 MG CAPSULE PO (09:30)
[2025-07-23] MEDS: LIDOCAINE 5% PATCH 1 PATCH TRANSDERM (09:30)
--- NOTE | 2025-07-23 09:45 | PC.NURSE ---
Patient instructed on viewing the discharge video Mother & Baby Care, The First Two Weeks. Patient was given the opportunity and encouraged to ask questions. Patient verbalized understanding of information shared and has been given the mother/baby guide for home reference.
[2025-07-25 14:48] VITALS: BP 123/88; PULSE 76; RESP 18; TEMP 37.1; O2SAT 98
== END 2025-07-23 13:35 | disposition home or self-care (01) | DRG 788 ==
LOC: ANHLDR 05:49 → ANHOB2 11:06
PROVIDERS: Admitting Provider Obstetrics & Gynecology; Visit Provider Obstetrics & Gynecology
PROC: 10D00Z1 Extraction of Products of Conception, Low, Open Approach (ICD-10-PCS; CPT 59514; principal; 2025-07-21 07:30)
DX: O34.211 Maternal care for low transverse scar from previous cesarean delivery (principal); Z37.0 Single live birth; Z3A.38 38 weeks gestation of pregnancy; O77.0 Labor and delivery complicated by meconium in amniotic fluid
CPT/HCPCS: 36415; 85025; J0690; A9270; J1885; J2274; J2371; J2405; J2590; J7120

== ENCOUNTER 2025-08-24 00:57 | Day surgery (SDC) | payer OTHER, MEDICAID, SELFPAY ==
--- OUTSIDE RECORDS SUMMARY | 2022-01-25 09:53 | XMS_ITS | Continuity of Care Document ---
Author Organization [facility] Address [address] [place] [address] Phone Care Team Providers Care Database Programmer Name Role Phone ROBERT Borrero Valerie Unavailable Unavaila ble Allergies, Adverse Reactions, Alerts Substance Reaction Status Criticality No Known Allergies Active No Inform ation Medications Medication Instructions Dosage Effective Dates (start - stop) Status Comments Lexapro 10 mg tablet take 1 tablet by or al route every day 10 MG - Active Procedures Procedure Date PSYTX PT&/FAMILY 60 MINUTES PSYTX PT&/FAMILY 60 MINUTES PSYTX PT&/FAMILY 45 MINUTES PSYTX PT&/FAMILY 60 MINUTES PSYTX PT&/FAMILY 60 MINUTES PSYTX PT&/FAMILY 45 MINUTES OFFICE/OUTPATIENT VISIT, EST PSYTX PT&/FAMILY 45 MINUTES PSYTX PT&/FAMILY 60 MINUTES PSYTX PT&/FAMILY 60 MINUTES PSYTX PT&/FAMILY 60 MINUTES PSYCH DIAGNOSTIC EVALUATION Mental Health Rate OFFICE/OUTPATIENT VISIT, [facility] Advance Directives Directive Yes / No Effective Date File Name No Information Encounters Encounter Description Practice Location Reason(s) For Visit Diagnoses Date Provider Providers Copied on Encounter [facility], [address], [place], [id number] , [place] tel:[phone] Behavorial Health No Information 2 ROBERT Borrero. [address], [place], [id number] , [place]. tel: [phone] [facility], [address], [place], [id number] , [place] tel: [phone] Behavorial Health Post-traumatic stress disorder 1 CapAMINA finnC Lorna. [address], [place], [id number] , [place]. tel: [phone] PSYTX PT&/FAMILY 60 MINUTES [facility], [address] [place] [address], [id number] , [place] tel: [phone] Behavorial Health Post-traumatic stress disorder 1 ROBERT Borrero Lorna. [address], [place], [id number] , [place]. tel: [phone] PSYTX PT&/FAMILY 60 MINUTES [facility], [address] [place] [address], [id number] , [place] tel: [phone] Behavorial Health Post-traumatic stress disorder 1 AMINA BorreroC Lorna. [address] [place] [address], [id number] , [place]. tel: [phone] PSYTX PT&/FAMILY 45 MINUTES [facility], [address] [place] [address], [id number] , [place] tel: [phone] Behavorial Health Post-traumatic stress disorder 0 Capjacquelineini, AMINAC Lorna. [address], [place], [id number] , [place]. tel: [phone] PSYTX PT&/FAMILY 60 MINUTES [facility], [address] [place] [address], [id number] , [place] tel: [phone] Behavorial Health Post-traumatic stress disorder 0 Capucini, AMINAC Lorna. [address] [place] [address], [id number] , [place]. tel: [phone] PSYTX PT&/FAMILY 60 MINUTES [facility], [address], [place], [id number] , [place] tel: [phone] Behavorial Health Post-traumatic stress disorder 0- 0 CapROBERT finn Lorna. [address], [place], [id number] , [place]. tel: [phone] PSYTX PT&/FAMILY 45 MINUTES [facility], [address], [place], [id number] , [place] tel: [phone] [facility]hav[facility] Post-traumatic stress disorder 0 CapucROBERT rodgers Lorna. [address], [place], [id number] , [place]. tel: [phone] [facility], [address] [place] [address], [id number] , [place] tel: [phone] [facility] No Information 0 Pavlock DO Max. [address], [place], [id number] , [place]. tel: [phone] OFFICE/OUTPA TIENT VISIT, EST [facility], [address] [place] [address], [id number] , [place] tel: [phone] [facility] F/U (chief complaint) depression (chief complaint) depression 0 Pavlock DO Max. [address], [place], [id number] , [place]. tel: [phone] PSYTX PT&/FAMILY 45 MINUTES [facility], [address] [place] [address], [id number] , [place] tel: [phone] Behav[facility] Post-traumatic stress disorder 0 ROBERT Borrero Lorna. [address] [place] [address], [id number] , [place]. tel: [phone] PSYTX PT&/FAMILY 60 MINUTES [facility], [address] [place] [address], [id number] , [place] tel: [phone] Behav[facility] Post-traumatic stress disorder 0 Capucini, LPCC Lorna. [address] [place] [address], [id number] , [place]. tel: [phone] PSYTX PT&/FAMILY 60 MINUTES [facility], [address] [place] [address], [id number] , tel: [phone] Behav[facility] Post-traumatic stress disorder 0 Capucini, LPCC Lorna. [address] [place] [address], [id number] , [place]. tel: [phone] PSYTX PT&/FAMILY 60 MINUTES [facility], [address] [place] [address], [id number] , [place] tel: [phone] Behav[facility] Post-traumatic stress disorder 0 Capucvishal, LPCC Lorna. [address] [place] [address], [id number] , [place]. tel: [phone] PSYCH DIAGNOSTIC EVALUATION [facility], [address] [place] [address], [id number] , tel: [phone] Behavorial Health Post-traumatic stress disorder 0 Capucini, CaseRevC Lorna. [address] [place] [address], [id number] , [place]. tel: [phone] OFFICE/OUTPA TIENT VISIT, [facility], [address] [place] [address], [id number] , tel: [phone] [facility] Est Care (chief complaint) Anxiety (chief complaint) Body mass index [BMI] 31.0-31.9, adultPTSD (post-traumatic stress disorder) depressionPostpartu m depression 0 Pavlock DO Max. [address] [place] [address], [id number] , [place]. tel:[phone] Family History Family Member Type Diagnosis Age At Onset No Information Payers Payer name Insurance type Covered republican ID Edmund fields(s) Medicaid [facility] [id number] Social History Type Description Quantity Date Captured Comments Alcohol Use Details Unknown Caffeine Use Details Unknown Tobacco Use Status No Information Smoking Status No Information Sex Female Sexual Orientation Straight or heterosexual Gender Identity Female Chief Complaint And Reason For Visit No Information Reason For Referral Reason For Referral No Information Plan Of Treatment Date Type Action Status Goal Dietary management education , guidance, and counseling completed History Of Present Illness Encounter Date Complaint History Of Prese nt Illness depression This is a follow up visit. There is improvement of initial symptoms. The patient reports functioning as not difficult at all. The patient does not present with anxious/fearful thoughts, compulsive thoughts, decreased need for sleep, depressed mood, excessive worry or fatigue. The patient's relieving factors are a fair response to medication (Lexapro). The patient denies any chronic pain, headache, irritability, nausea, sweating, trembling, urinary frequency, vomiting and weight gain. Additional information: Pt states she feels herself and is now laughing alot more and handling things better. F/U Here for F/U for post- depression. States most days feels as though Lexapro is working but other days feels as if she has not taken anything. Continues to see Renetta Borrero weekly. Tae Mccoy RN Anxiety This is an initi al visit. The patient reports functioning as very difficult. The patient presents with anxious/fearful thoughts, compulsive thoughts, decreased need for sleep, depressed mood, difficulty concentrating, diminished interest or pleasure, excessive worry, fatigue, feelings of guilt, paranoia, poor judgment, racing thoughts and restlessness but denies thoughts of or suicide. The Anxiety is associated with irritability. The patient denies any chronic pain, headache, nausea, sweating, trembling, urinary frequency, vomiting and weight gain. Additional information: had baby 2 months ago. Est Care PT here today to establish care. Pt also wants to start medication for anxiety and PTSD. PT states she is not in counseling but states she wants to meet with one of our conselors. Pt states she is orginally from [place] and just moved up here. No other issues or concernsTGrodi EARLY HEAD START DIRECTOR Functional Status Date Functional Assessmen t No Information Instructions Date Instruction Additional Infor mation Giving encouragement to exercise Related to Body mass index [BMI] 31.0-31.9, adult Dietary management e ducation, guidance, and counseling Related to Body mass index [BMI] 31.0-31.9, adult Assessments Type Assessment Date No Information Patient Care Teams Name Effective Dates (start - stop) Status Members No Information
[2025-08-18 14:41] VITALS: BMI 31.8
--- NOTE | 2025-08-18 14:41 | PC.NURSE ---
[facility] has started construction of its new state of the art ER which will open Spring 2026. With this, we anticipate parking may be a challenge for some our surgical patients and families. Parking spaces are limited but are available for all Surgical, obstetrics, and ER patients sharing this lot. If you arrive and find you are having a hard time finding a parking space, please note that we understand the challenges, please drive around the hospital and park near Hospital Entrance 1. When you enter this entrance, you can ask a volunteer to direct or take you back to the surgical waiting area to check in. We appreciate everyone?s understanding of these expected challenges while we build for your future. Report to the Outpatient Waiting Room, entrance under the green pavilion located off [address], at time _0900_ on date _[phone]_. Planned Procedure Time: _1100_.? Time changes happen often and if your time is changed the preop area will call you the afternoon before. - You and your visitor will be asked to self-screen and do not enter if you have any COVID symptoms. Please call surgeon if you need to reschedule. - A mask is optional within the hospital at this time. Patients may have clear liquids (water, carbonated beverages, clear teas, apple juice) until 3 hours prior to surgery with a maximum of 20 ounces. - No food from midnight until time of surgery and no smoking, or chewing tobacco (or any form of nicotine). No chewing gum, candy or mints. Take only the following medications with a SIP of water on the morning of surgery: __None DO NOT STOP ANY OF YOUR OTHER PRESCRIPTION MEDICATIONS PRIOR TO SURGERY EXCEPT THE FOLLOWING Hold all vitamins and supplements for 3 days per anesthesiologist. Medications to discontinue per physician Date to take last dose____ Please no make-up, nail tamazight, hairspray, perfume, deodorant, or body powder the day of surgery.? No jewelry (including any body piercings) or valuables the day of surgery, leave them at home.? Please take a shower or bath the night before, or the morning of, surgery with an antibacterial soap.? Wear comfortable, loose fitting clothing.? - Jewelry must be removed prior to entering the operating room.? Rings and piercings that are not removed may be cut off. - The hospital will not accept responsibility for valuables.? - Please leave all valuables, including medications, at home the day of surgery. If you are going home after surgery, a licensed limo driver must drive you home.? - NO public transportation without another adult if you receive anesthesia. - We recommend that an adult stay with you for 24 hours following discharge. - We also recommend that you do not drive, make important decision, drink alcoholic beverages, or take any drugs that were not prescribed by your health care provider for at least 24 hours after your discharge time. Follow any additional instructions given to you from your surgeon. Telephone instructions given to _Saige___and asked if any additional questions and then verbalized understanding. Patient advised to call surgeon office or pre surgery nurse liaison [phone] if any additional questions.
[2025-08-24] VITALS (7 sets, daily range): BP systolic 92–122; BP diastolic 58–89; PULSE 65–84; RESP 12–18; TEMP 36.2–36.6; O2SAT 96–100; BMI 32.1
--- OUTSIDE RECORDS SUMMARY | 2025-08-24 01:07 | XMS_ITS | Clinical Summary ---
Author Organization [facility] Address [address] [place] [address] Phone Care Team Providers Care Gallery Host Name Role Phone Provider, None Primary Care [...] Immunization (#1) 2025 SARS-COV-2 Immunization ( - 2024- season) 2025 Respiratory Syncytial Virus (RSV) Immunization (Adult) (1 - 1-dose 75+ series) 2066 Meningococcal Immunization (ACWY) Aged Out No longer eligible based on patient's age to complete this topic Rotavirus Immunization Aged Out No lo nger eligible based on patient's age to complete this topic Insurance Care Teams Gallery Host Relationship Specialty Start Date End Date Provider, None [place] PCP - General 04/13/24
--- OUTSIDE RECORDS SUMMARY | 2025-08-24 01:07 | XMS_ITS | Patient Health Record ---
Author Organization [facility] Address [address] [place] [address] Support Name Relationship Address Phone Satya estelaallegra [...]
--- OUTSIDE RECORDS SUMMARY | 2025-08-24 01:07 | XMS_ITS | Clinical Summary ---
Author Organization [facility] Virtual Care Address [address] [place] [phone] Phone Care Team Providers Care Business Process Manager Name Role Phone No, Physician Primary Care Provider [phone] Allergies No known active allergies Medications No known medications Active Problems Problem Noted Date Diagnosed Date Hematuria 02/08/2025 Proteinuria 02/08/2025 Cystitis 02/08/2025 Near syncope 02/08/2025 Tension headache 02/08/2025 Estimated Date of Delivery Comme nts Yes 07/29/2025 Based on Patient Reported Encounters Date Type Department Care Team Description 07/29/2025 Hospital Encounter [facility] [address] [place] [address] Thor Valverde MD 06/03/2025 8:16 PM CDT - 06/03/2025 9:15 PM CDT Hospital Encounter [facility] [address] [place] [address] Thor Valvered MD Discharge Disposition: Discharge to home or [...] often do you attend chur ch or lutheran services? Never 04/25/2025 Do you belong to any clubs o r organizations such as yazidism groups, unions, fraternal or athletic groups, or [...] staff should administer the PHQ-9) 0 04/25/2025 [facility] Occupat ional [facility] - Occupational Stress Questionnaire Answer Date Recorded [...] any time in the past 12 m [facility], were you homeless or living in a penitentiary (including now)? No 04/25/2025 Personal Safety Answer [...] Estimated Date of Delivery 04/25/2025 - Present (08/24/2025) 07/29/2025 (set by Jessie Kelly, ANAND on 04/25/2025 based on Patient Reported) Dating Summary Based On MARK GA Diff Patient Reported 07/29/2025 Working Vitals Pregravid Weight Height TWG (As of 08/24/2025) Pregrav id BMI 154.9 cm (5' 1) Date GA Fund Present FHR Mvmt BP Weight Edema Alb Glu Ket Dil/ Eff/Sta 5 26w3d Inpatient data not displayed here. See encounter summary. 5 32w0d Inpatient data not displayed here. See encounter summary. Notes Progress Notes - Hospital En counter - 04/25/2025 - GA:26w3d 04/25/2025 - w3d - Faye Lazaro MD [facility] Obstetrics Triage Note Chief Complaint: Abdominal pain, back pain Estimated Date of Delivery: None noted. Provider: Dr. Sanders Coffee Sampler: CINTHIA Subjective HPI: Saige Sanchez is a 34 y.o. female at 27w4d of gestation, dated by LMP consistent with 14 wk US with Estimated Date of Delivery: 07/29/25. 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 Patient is . [...] Date of Delivery: 07/29/25. who presents to [facility] Triage for pelvic pressure, abdominal pain and [...] US Faye Swift MD Family Medicine PGY-1 [facility] Family Medicine Residency Cosigned by Thor Valverde [...] culture. Pt will follow up with primary Video Game Creator. Last Filed Vital Signs Vital Sign Reading [...] 04/25/2025 12:28 PM CDT Plan of Treatment Health Maintenance [...] Vaccine (#1) 2025 Depression Screening 04/25/2026 04/25/2025 Insurance [employer] [facility] [employer] [place] Care Teams Business Process Manager Relationship Specialty Start Date End Date No, Physician PCP - General 12/05/24
--- OUTSIDE RECORDS SUMMARY | 2025-08-24 01:07 | XMS_ITS | Encounter Summary ---
Author Organization [facility] Healthcare Address [address] [place] [address] Care Team Providers Care Machine Installer Name Role Phone No, Physician Primary Care Provider [phone] Encounter Details Date Type Department Care Team (Late st Contact Info) Description 07/29/2025 Hospital Encounter [facility] [address] [place] [address] Thor Valverde MD [address] [place] [address] [address] [place] [address] Social History Tobacco Use Types Packs/Day Years Used Date Smoking Tobacco: Never Smokeless Tobacco: Never Social Connection and Isolation Panel Answer Date Recorded In a typical week, how many times do you talk on the phone with family, friends, or neighbors? More than three times a week 04/25/2025 How often do you get togethe r with friends or relatives? More than three times a week 04/25/2025 How often do you attend chur ch or protestant services? Never 04/25/2025 Do you belong to any clubs o r organizations such as adventist groups, unions, fraternal or athletic groups, or [...] staff should administer the PHQ-9) 0 04/25/2025 [facility] - Occupational Stress [...] any time in the past 12 m [facility], were you homeless or living in a [facility] (including now)? No 04/25/2025 Personal Safety Answer [...] on file Sexual Orientation Not on file documented as of this encounter Plan of Treatment Not on file documented as of this encounter Visit Diagnoses Not on filedocumented in this encounter Care Teams Machine Installer Relationship Specialty Start Date End Date No, Physician PCP - General 12/05/24 documented as of this encounter
--- NOTE | 2025-08-24 10:16 | P.HP_ITS ---
H&P: HPI History of Present Illness Date/Time: 08/24/25 10:16 Chief Complaint: Unwanted fertility Narrative: This patient is a 34-year-old female with unwanted fertility. We agreed to perform laparoscopic bilateral salpingectomy. She understands risks benefits, and alternative. She has completed the informed consent process is ready to proceed. The patient understands the details of the procedure. The procedure has been explained in detail. She understands the risks. She understands that injuries may occur that result in hospitalization, more surgery, and severe illness. She understands risk of hemorrhage and infection. She denies any chest pain or shortness of breath. She denies any nausea, vomiting, fever, chills. Review of Systems Review of Systems: All systems reviewed & are unremarkable except as noted in HPI and below Constitutional: Constitutional: Denies chills, Denies fatigue, Denies fever(s) and Denies weakness Eyes: Eyes: Denies blurry vision, Denies change in vision, Denies loss of peripheral vision, Denies loss of vision, Denies other visual disturbances and Denies eye pain ENT: Denies vertigo, Denies dizziness, Denies hearing loss, Denies mouth pain, Denies nasal obstruction, Denies neck mass and Denies neck pain Cardiovascular: Cardiovascular: Denies chest pain, Denies diaphoresis, Denies syncope, Denies leg edema and Denies dyspnea Respiratory: Respiratory: Denies chest congestion, Denies cough, Denies hemoptysis, Denies dyspnea and Denies wheezing Gastrointestinal: Gastrointestinal: Denies abdominal pain, Denies constipation, Denies diarrhea, Denies nausea and Denies vomiting Genitourinary: Genitourinary: Denies hematuria, Denies change in libido, Denies nocturia, Denies genital lesions, Denies flank pain and Denies urinary urgency Musculoskeletal: Musculoskeletal: Denies abnormal gait, Denies back pain, Denies myalgias, Denies arthralgias, Denies joint swelling, Denies muscle weakness and Denies neck pain Integumentary/Breasts: Skin/Breast: Denies swelling, Denies breast pain, Denies breast mass, Denies dry skin, Denies nipple discharge, Denies unusual bruising and Denies jaundice Neurologic: Denies Neuro-related abnormal movements, Denies Abnormal speech present, Denies abnormal gait, Denies behavioral changes, Denies confusion, Denies vertigo, Denies dizziness, Denies syncope, Denies loss of vision, Denies memory loss, Denies convulsions and Denies weakness Psychiatric: Psychiatric: Denies abnormal sleep pattern, Denies behavioral changes, Denies change in libido, Denies confusion, Denies depression, Denies anhedonia and Denies memory loss Endocrine: Endocrine: Reports no additional endocrine complaints, Denies change in libido and Denies fatigue Hematologic/Lymphatic: Hematologic/Lymphatic: Reports no additional hematologic/lymphatic complaints Allergic/Immunologic: Allergic/Immunologic: Reports no additional allergic/immunologic complaints and Denies wheezing PMFSH Surgical History Surgical History (Updated 07/23/25 @ 07:49 by Cathy Cutler CNM) Previous section Family History Family History Other No pertinent family history Social History Social History Smoking packs per day: 1 Smoking cigarettes per day: 20.0 Years smoked: 6 Smoking pack-years: 6.00 Smoking status: Former smoker Tobacco type: cigarettes Smoking end date: 03/18/25 Substance use: never Do You Feel Safe in your Home?: Yes Lack of Transportation: No Lack of Food: Never True Current Housing: I Have Housing Concerned About Future Housing: No Difficulty Paying Gas/Electric Bills: No Difficulty Paying for Meds: No Currently Unemployed: No Education: Trade/Vocational Certificate Difficulty w/ Childcare or Family Care: No Living arrangements: with family Spiritual care concerns: No Meds Home Medications and Allergies Home Medications ?Medication ?Instructions ?Recorded ?Confirmed ?Type No Home Medications 08/18/25 08/18/25 H istory Allergies Allergy/AdvReac Type Severity Reaction Status Date / Time No Known Allergies Allergy Verified 08/18/25 14:31 Exam Const: General: cooperative, healthy appearing, comfortable and no acute distress Orientation/consciousness: oriented to person, oriented to place and oriented to time HENMT: Head: normal to inspection Ears: external ears normal Face/Nose/Sinus: Normal external nose present and normal facial exam Face and sinus: normal facial exam Eyes: General: appearance normal, both eyes and all related structures Neck: Neck: normal visual inspection, trachea midline and supple Resp: Auscultation: clear to auscultation bilaterally, no crackles, no rales, no rhonchi and no wheezes Cardio: Rate: regular rate Rhythm: regular rhythm Heart sounds: no click, no murmurs and no rubs GI: GI Palp: No abdominal tenderness, No Soft to palpation, No Tenderness to palpation present (GI) and No Palpable mass present Auscultation: normal bowel sounds Skin: General skin exam: normal color and no rashes or lesions noted Neuro: General: oriented to person, oriented to place and oriented to time Extrem: General: normal to inspection, no joint enlargement, no clubbing, cyanosis or edema, no pedal edema and no calf tenderness Psych: Appearance: grossly normal Mental Status: mental status grossly normal Speech and movement: Normal speech and movement present Assessment and Plan Assessment and plan (1) Unwanted fertility: Code(s): Z30.09 - Encounter for other general counseling and advice on contraception Status: Acute Plan This patient is a 34-year-old female with unwanted fertility. We agreed to perform laparoscopic bilateral salpingectomy. She understands risks benefits, and alternative. She has completed the informed consent process is ready to proceed.
[2025-08-24] MEDS: ACETAMINOPHEN 500 MG TABLET 1000 MG PO (10:17)
[2025-08-24] MEDS: KETOROLAC 15 MG/ML VIAL (*BKC) IV PUSH (10:17)
--- NOTE | 2025-08-24 10:17 | WPDHPUPDATE1 ---
History and Physical Update Update Date/Time: 08/24/25 10:17 History and Physical has been reviewed, including an updated exam of the patient. There are NO changes in the patient's condition. Risks, benefits, and alternatives have been discussed and questions answered. Patient agrees to proceed with procedure.
--- NOTE | 2025-08-24 10:25 | P.PNAN_ITS ---
Anes - Initial Pre Proc Eval Procedure: Operation Date: 08/24/25 11:00 Proposed Procedures p Laparoscopic Bilateral Salpingectomy - Don Sanders MD Date/Time: 08/24/25 10:25 Surgeon: Don Sanders MD Pre Op Diagnosis: sterilization Patient Data Age: 34 Gender: F Height: 1.55 m Weight: 77 kg Allergies Allergy/AdvReac Type Severity Reaction Status Date / Time No Known Allergies Allergy Verified 08/18/25 14:31 Home Medications ?Medication ?Instructions ?Recorded ?Confirmed ?Type No Home Medications 08/18/25 08/18/25 H istory Patient hx anesthesia problems: none Family hx anesthesia problems: none Results Review: All pre-operative results and documents have been reviewed as part of the pre- operative evaluation. [facility] Surgical History Surgical History Previous section Family History Family History Other No pertinent family history Social History Social History Smoking packs per day: 1 Smoking cigarettes per day: 20.0 Years smoked: 6 Smoking pack-years: 6.00 Smoking status: Former smoker Tobacco type: cigarettes Smoking end date: 03/18/25 Substance use: never Do You Feel Safe in your Home?: Yes Lack of Transportation: No Lack of Food: Never True Current Housing: I Have Housing Concerned About Future Housing: No Difficulty Paying Gas/Electric Bills: No Difficulty Paying for Meds: No Currently Unemployed: No Education: Trade/Vocational Certificate Difficulty w/ Childcare or Family Care: No Living arrangements: with family Spiritual care concerns: No Anes - Eval Final PreProcedure Day of Procedure 08/24/25 10:25 Patient weight: obese Heart: regular rate and rhythm Lungs: clear to auscultation Airway: Mallampati scale class II Neurological: alert and oriented Last oral intake: >/= 8 hours ASA classification: II Emergent: no Anesthetic plan: proceed Anesthesia type and monitoring: general ETT and standard monitoring Results Review: All pre-operative results and documents have been reviewed as part of the pre- operative evaluation. Informed Consent: The patient's anesthetic plan and its attendant risks and benefits were discussed with the patient/family/POA. Questions were solicited and answers provided to the satisfaction of the patient/family/POA.
[2025-08-24 10:29] LABS: BEDSIDEPREGUCG Negative (Negative)
--- NOTE | 2025-08-24 11:01 | S_PTH ---
PATIENT: Saige Sanchez LOC: [facility] U#:[id number] AGE/SX: 34/F ROOM: RE08/24/[address]: Don Sanders MD : 1990 BED: DIS: 08/24/2025 SPEC #: [id number] RECD: 08/24/25 13:22 STATUS: MERY REQ #: [id number] JUAN ANTONIO: 08/24/25 11:[address]: Don Sanders DEPT: [facility] Surgical RECD BY: Doris Post ENTERED: 08/24/25 13:22 SP TYPE: Surgical OTHR DR: [facility] PHYSICIAN Tissues: A - Fallopian Tube Bilateral Procedures: Gross and Microscopic Level 2 Hematoxylin and Eosin Stain
--- NOTE | 2025-08-24 11:26 | W.PM.PROC2 ---
Procedure Note - Detailed Date of Procedure 08/24/25 Pre-op Diagnosis sterilization Post-op Diagnosis Same Procedure Performed Laparoscopic bilateral salpingectomy Surgeon Don Sanders MD Anesthesia General Indications Unwanted fertility Findings Normal pelvic anatomy Description of Procedure The patient was taken the operating room. She was prepped and draped in the dorsal lithotomy position after induction of general anesthesia. A 5 mm skin incision was made in the left upper quadrant of the abdominal skin. A 5 mm trocar was inserted the intra-abdominal cavity under direct visualization of the scope. Pneumoperitoneum was achieved. A 5 mm trocar was inserted in the left lower quadrant identical fashion. A 5 mm infraumbilical trocar was inserted in identical fashion as well. The bilateral fallopian tubes were removed. This was done by using a LigaSure cautery. The mesosalpinx adjacent to the tube was cauterized transected with LigaSure. This was initiated in the area the ovary and in a stepwise fashion moved medially to the area of the cornu of the uterus. Once there the fallopian tube was cauterized and transected. This was done in identical fashion on each side. The fallopian tubes were taken out through the left lower quadrant trocar site. The pneumoperitoneum was reduced. The trocars removed. The skin was closed with subcuticular 4 Monocryl and covered with Dermabond. She was taken to cover stable condition. Sponge lap and needle counts were correct x2. Estimated Blood Loss 5 Drains No Packing No Pathology Yes Complications No immediate complications Condition Stable Disposition PACU
[2025-08-24] MEDS: LACTATED RINGERS 1,000 ML 30 ML IV CONT ×2 (11:32)
[2025-08-24] MEDS: fentaNYL CITRATE INJ (*CRX) 100 MCG/2 ML VIAL 25 MCG IV PUSH ×2 (11:39→11:41)
--- NOTE | 2025-08-24 12:50 | SUR.PHASEII ---
1251: patient ready for dc, Waiting on a ride.
== END 2025-08-24 13:15 | disposition home or self-care (01) ==
PROVIDERS: Visit Provider Obstetrics & Gynecology
PROC: (CPT 49320; principal; 2025-08-24 11:00)
DX: Z30.2 Encounter for sterilization (principal); E66.9 Obesity, unspecified; Z68.32 Body mass index [BMI] 32.0-32.9, adult; Z98.890 Other specified postprocedural states; Z87.891 Personal history of nicotine dependence
CPT/HCPCS: 58661; 88302; A9270; J1100; J1885; J2250; J2405; J2704; J3010; J7120